=== PATIENT | female | born 1950 | race Caucasian/White ===

== ENCOUNTER 2020-08-12 08:07 | Outpatient (REF) | payer OTHER, SELFPAY ==
[2020-08-12 10:28] LABS: MANUAL DIFF FLAG NO
[2020-08-12 10:32] LABS: Basophils Percent Auto 0.2 % (0-2); Eosinophils Absolute Auto 0.2 X10*3/uL (0.0-0.4); Eosinophils Percent Auto 1.7 % (0-4); Hematocrit 35.5 % (37-47); Hemoglobin 11.1 g/dl (12.0-16.0); Imm Gran Abs Auto 0.02 X10*3/uL (0.00-0.03); Imm Gran Pct Auto 0.2 % (0.0-0.4); Lymphocytes Absolute Auto 1.6 X10*3/uL (1.2-4.9); Lymphocytes Percent Auto 16.7 % (20-40); Mean Corpuscular HGB Conc 31.3 g/dl (31.0-35.0); Mean Corpuscular Hemoglobin 29.1 pg (27.0-33.0); Mean Corpuscular Volume 93.2 fL (80-98); Mean Platelet Volume 10.5 fL (9.4-12.3); Monocytes Absolute Auto 0.7 X10*3/uL (0.1-1.2); Monocytes Percent Auto 7.2 % (2-11); Neutrophils Absolute Auto 7.1 X10*3/uL (2.0-8.3); Platelet Count 298 X10*3/uL (160-400); Red Blood Count 3.81 X10*6/uL (4.20-5.50); Red Cell Distribution Width 14.8 % (11.0-16.0); White Blood Count 9.6 X10*3/uL (4.8-10.8)
[2020-08-12 10:43] LABS: Estimated Average Glucose 189 mg/dL; Hemoglobin A1c % 8.2 %
[2020-08-12 11:21] LABS: Creatinine Urine 84.02 mg/dL; Microalbum/Creatinine Ratio Ur 54.7 ug/mg cr
[2020-08-12 11:25] LABS: Alanine Aminotransferase 11 U/L (0-31); Albumin Level 3.6 g/dL (3.5-5.0); Alkaline Phosphatase 98 U/L (39-117); Anion Gap 12 (12-20); Aspartate Amino Transferase 12 U/L (5-31); Bilirubin Total 0.4 mg/dL (0.0-1.0); Blood Urea Nitrogen 25 mg/dL (9-16); Calcium 9.8 mg/dL (8.4-10.2); Carbon Dioxide 29 mmol/L (22-29); Chloride 101 mmol/L (96-108); Cholesterol 172 mg/dL; Estimated Glomerular Filt Rate 43; Glucose Fasting 253 mg/dL (60-99); HDL Cholesterol 55 mg/dL; LDL Cholesterol Calculated 86 mg/dl; Potassium 4.3 mmol/l (3.3-5.1); Sodium 138 mmol/L (135-145); Total Protein 7.1 g/dL (6.5-8.0); Triglycerides 157 mg/dL
[2020-08-12 11:45] LABS: TSH reflex Free T4 1.95 mIU/mL (0.32-4.0)
== END 2020-08-12 08:08 | disposition home or self-care (01) ==
LOC: HO.WFDLDS 08:07
PROVIDERS: PCP Family Medicine; Visit Provider Family Medicine
DX: Z00.00 Encounter for general adult medical examination without abnormal findings (principal); F41.8 Other specified anxiety disorders; E11.9 Type 2 diabetes mellitus without complications
CPT/HCPCS: 36415; 80053; 80061; 82043; 83036; 84443; 85025

== ENCOUNTER → 2021-01-02 11:55 | Outpatient (BNVA) | payer OTHER, SELFPAY | PROVIDERS: PCP Family Medicine; Visit Provider Dietitian, Registered ==

== ENCOUNTER → 2021-02-10 13:15 | Outpatient (BNVA) | payer OTHER, SELFPAY | PROVIDERS: PCP Family Medicine; Visit Provider Physician Assistant | DX: R13.10 Dysphagia, unspecified (principal); I26.99 Other pulmonary embolism without acute cor pulmonale; T45.515A Adverse effect of anticoagulants, initial encounter; Z95.828 Presence of other vascular implants and grafts | CPT/HCPCS: Q3014 ==

== ENCOUNTER 2021-03-10 09:23 | Outpatient (REF) | payer OTHER, MEDICARE, SELFPAY ==
[2021-03-10 10:31] LABS: Basophils Percent Auto 0.5 % (0-2); Eosinophils Absolute Auto 0.1 X10*3/uL (0.0-0.4); Eosinophils Percent Auto 1.8 % (0-4); Hematocrit 39.6 % (37-47); Hemoglobin 12.3 g/dl (12.0-16.0); Imm Gran Abs Auto 0.02 X10*3/uL (0.00-0.03); Imm Gran Pct Auto 0.3 % (0.0-0.4); Lymphocytes Absolute Auto 1.6 X10*3/uL (1.2-4.9); Lymphocytes Percent Auto 20.7 % (20-40); MANUAL DIFF FLAG NO; Mean Corpuscular HGB Conc 31.1 g/dl (31.0-35.0); Mean Corpuscular Hemoglobin 29.6 pg (27.0-33.0); Mean Corpuscular Volume 95.4 fL (80-98); Monocytes Absolute Auto 0.5 X10*3/uL (0.1-1.2); Monocytes Percent Auto 6.3 % (2-11); Neutrophils Absolute Auto 5.5 X10*3/uL (2.0-8.3); Neutrophils Percent Auto 70.4 % (45-73); Platelet Count 290 X10*3/uL (160-400); Red Blood Count 4.15 X10*6/uL (4.20-5.50); Red Cell Distribution Width 13.6 % (11.0-16.0); White Blood Count 7.8 X10*3/uL (4.8-10.8)
[2021-03-10 10:37] LABS: Estimated Average Glucose 249 mg/dL; Hemoglobin A1c % 10.3 %
[2021-03-10 11:02] LABS: Alanine Aminotransferase 11 U/L (0-31); Albumin Level 3.8 g/dL (3.5-5.0); Alkaline Phosphatase 89 U/L (39-117); Anion Gap 12 (12-20); Aspartate Amino Transferase 13 U/L (5-31); Bilirubin Total 0.3 mg/dL (0.0-1.0); Blood Urea Nitrogen 37 mg/dL (9-16); Calcium 10.5 mg/dL (8.4-10.2); Carbon Dioxide 28 mmol/L (22-29); Chloride 103 mmol/L (96-108); Estimated Glomerular Filt Rate 39; Glucose Random 318 mg/dL (60-115); Potassium 5.1 mmol/L (3.3-5.1); Sodium 138 mmol/L (135-145); Total Protein 7.1 g/dL (6.5-8.0)
[2021-03-10 11:19] LABS: TSH reflex Free T4 4.46 uIU/mL (0.32-4.0)
== END 2021-03-10 09:24 | disposition home or self-care (01) ==
LOC: HO.WFDLDS 09:23
PROVIDERS: Visit Provider Family Medicine
DX: Z00.00 Encounter for general adult medical examination without abnormal findings (principal); E11.9 Type 2 diabetes mellitus without complications; R53.83 Other fatigue
CPT/HCPCS: 36415; 80053; 83036; 84439; 84443; 85025

== ENCOUNTER 2021-03-17 10:59 | Outpatient (REF) | payer OTHER, MEDICARE, SELFPAY ==
[2021-03-17 13:27] LABS: MANUAL DIFF FLAG NO
[2021-03-17 13:31] LABS: Basophils Percent Auto 0.4 % (0-2); Eosinophils Absolute Auto 0.1 X10*3/uL (0.0-0.4); Hematocrit 40.8 % (37-47); Hemoglobin 12.5 g/dl (12.0-16.0); Imm Gran Abs Auto 0.01 X10*3/uL (0.00-0.03); Imm Gran Pct Auto 0.1 % (0.0-0.4); Lymphocytes Absolute Auto 1.5 X10*3/uL (1.2-4.9); Lymphocytes Percent Auto 21.1 % (20-40); Mean Corpuscular HGB Conc 30.6 g/dl (31.0-35.0); Mean Corpuscular Hemoglobin 29.8 pg (27.0-33.0); Mean Corpuscular Volume 97.1 fL (80-98); Mean Platelet Volume 11.6 fL (9.4-12.3); Monocytes Absolute Auto 0.6 X10*3/uL (0.1-1.2); Monocytes Percent Auto 8.7 % (2-11); NRBC Pct Auto 0.6 /100WBC (0.0-0.2); Neutrophils Absolute Auto 4.7 X10*3/uL (2.0-8.3); Neutrophils Percent Auto 67.7 % (45-73); Platelet Count 295 X10*3/uL (160-400); Red Cell Distribution Width 14.2 % (11.0-16.0); White Blood Count 6.9 X10*3/uL (4.8-10.8)
[2021-03-17 13:43] LABS: Estimated Average Glucose 258 mg/dL; Hemoglobin A1c % 10.6 %
[2021-03-17 14:23] LABS: Alanine Aminotransferase 13 U/L (0-31); Albumin Level 3.9 g/dL (3.5-5.0); Alkaline Phosphatase 92 U/L (39-117); Anion Gap 16 (12-20); Aspartate Amino Transferase 16 U/L (5-31); Bilirubin Total 0.6 mg/dL (0.0-1.0); Blood Urea Nitrogen 38 mg/dL (9-16); Calcium 10.3 mg/dL (8.4-10.2); Carbon Dioxide 25 mmol/L (22-29); Chloride 103 mmol/L (96-108); Estimated Glomerular Filt Rate 33; Glucose Fasting 215 mg/dL (60-99); Potassium 5.1 mmol/L (3.3-5.1); Sodium 139 mmol/L (135-145); Total Protein 7.5 g/dL (6.5-8.0)
[2021-03-17 14:42] LABS: TSH reflex Free T4 3.26 uIU/mL (0.32-4.0)
== END 2021-03-17 11:00 | disposition home or self-care (01) ==
LOC: HO.WFDLDS 10:59
PROVIDERS: Visit Provider Family Medicine
DX: Z00.00 Encounter for general adult medical examination without abnormal findings (principal); D64.9 Anemia, unspecified; E11.9 Type 2 diabetes mellitus without complications; R79.89 Other specified abnormal findings of blood chemistry
CPT/HCPCS: 36415; 80053; 83036; 84443; 85025

== ENCOUNTER 2021-03-20 08:15 | Outpatient (REF) | payer OTHER, MEDICARE, SELFPAY ==
--- NOTE | ~2021-03-20 | FL_ITS ---
EXAMINATION: FL BARIUM SWALLOW CLINICAL INFORMATION: Dysphagia. COMPARISON: None TECHNIQUE: Barium swallow examination is performed using fluoroscopic evaluation in addition to multiple fluoroscopic spot views. The patient is imaged both upright and prone and using both thick and thin sulfate along with effervescent granules. Fluoroscopy time: 1.5 minutes DAP: 19.39 Gycm2 Images: 62 FINDINGS: Following oral administration of thick barium and barium-coated turkey there is normal propagation of bolus from the oral cavity through the pharynx, esophagus into stomach without any evidence of obstruction, narrowing or stricture. No laryngeal penetration or aspiration seen. On placing patient supine and prone and oral administration of thin barium there is good distention of esophagus. Incidental note is a small sliding hiatal hernia with moderate gastroesophageal reflux. FL/FL barium swallow IMPRESSION: Small hiatal hernia with moderate gastroesophageal reflux. No esophageal obstruction or narrowing seen.
== END 2021-03-20 08:16 | disposition home or self-care (01) ==
LOC: HO.XRAY 08:15
PROVIDERS: PCP Family Medicine; Visit Provider Physician Assistant
DX: R13.10 Dysphagia, unspecified (principal); I26.99 Other pulmonary embolism without acute cor pulmonale; T45.515A Adverse effect of anticoagulants, initial encounter
CPT/HCPCS: 74220

== ENCOUNTER → 2021-03-25 10:21 | Outpatient (BNVA) | payer OTHER, SELFPAY | PROVIDERS: PCP Family Medicine; Visit Provider Dietitian, Registered | DX: E11.9 Type 2 diabetes mellitus without complications (principal) | CPT/HCPCS: 97803 ==

== ENCOUNTER → 2021-04-22 13:10 | Outpatient (BNVA) | payer OTHER, SELFPAY | PROVIDERS: PCP Family Medicine; Visit Provider Physician Assistant | DX: Z13.89 Encounter for screening for other disorder (principal) | CPT/HCPCS: Q3014 ==

== ENCOUNTER → 2021-07-02 11:37 | Outpatient (BNVA) | payer OTHER, SELFPAY | PROVIDERS: PCP Family Medicine; Visit Provider Physician Assistant | CPT/HCPCS: Q3014 ==

== ENCOUNTER → 2022-01-11 10:48 | Outpatient (BNVA) | payer OTHER, SELFPAY | PROVIDERS: PCP Family Medicine; Visit Provider Dietitian, Registered | DX: E11.9 Type 2 diabetes mellitus without complications (principal) | CPT/HCPCS: 97803 ==

== ENCOUNTER 2025-03-07 12:59 | Outpatient (AMB) | payer OTHER, SELFPAY ==
--- NOTE | 2025-03-07 13:31 | HO.NEPHOV_ITS ---
Vital Signs 03/07/25 13:40 Height 5 ft Weight 329 lb BMI 64.2 BP 130/60 Blood Pressure Location Rt brachial Position Sitting Pulse 55 Pulse Source Pulse Oximeter Pulse Oximetry (%) 95 Oxygen Delivery Method Room Air Intake Visit Reasons: DX-CKD Allergies alosetron [Lotronex] Allergy (Unknown, Verified 07/02/21 11:38) itching clindamycin [CLINDAMYCIN] Allergy (Unknown, Verified 07/02/21 11:38) RASH Clindamycin HCl Allergy (Unknown, Uncoded 07/02/21 11:38) rash HPI Comments Details: I had the pleasure of seeing Catrina in consultation for chronic kidney disease. She is 74 years of age with diabetes and hypertension for a long time. She has high BMI. She has severe obstructive sleep apnea as well. Her hemoglobin A1c had been uncontrolled. It was close to 10 last year but has improved since. She claims to be compliant with her medications. She is on JONNATHAN-inhibitor. She is not taking any SGLT2 inhibitor. She has history of cervical cancer and had undergone radiotherapy in 2001. She denies diabetic retinopathy but has neuropathy. She denies epistaxis, photosensitivity, new skin rashes, hematemesis, melena, hematuria, flank pain, renal stones, new bone or back pain, excessive amount of nonsteroidal anti-inflammatory intake, orthostatic symptoms, coronary artery disease, congestive heart failure, CVA, carotid stenosis or peripheral arterial disease. She did not have any new specific systemic complaints at the time of this office visit. [facility] Medical History (Updated 03/11/25 @ 13:56 by Ketan Simpson MD) Macular degeneration History of pulmonary embolus (PE) Depression Hypertension Hyperlipidemia Hyperparathyroidism Hyperglycemia Chronic kidney disease, stage 3 Pulmonary embolus Peroneal DVT (deep venous thrombosis) Diabetes type 2, controlled Surgical History Hx of endoscopy Hx of colonoscopy Hx of appendectomy Hx of carpal tunnel repair History of hysterectomy S/P skin biopsy Family History Father No problems noted. Mother No problems noted. Brother No problems noted. Social History (Updated 03/07/25 @ 13:33 by Munira Wiley MA) Are you a primary direct care counselor to a significant other at home: No Alcohol intake: former Patient Tobacco Use Status: Never used Tobacco Advance Directives Date on File: 08/12/20 Review of Systems Const All systems reviewed & are unremarkable except as noted in HPI and below Physical Exam Vital Signs: Last Vital Signs Pulse 55 03/07/25 13:40 BP 130/60 03/07/25 13:40 Pulse Ox 95 03/07/25 13:40 Oxygen Delivery Method Room Air 03/07/25 13:40 BMI result Body Mass Index 64.2 Const General: comfortable and no acute distress Orientation/consciousness: patient oriented x3 HEENT Head: Yes normocephalic Mouth: Normal oral and palatal mucosa present Eyes EOM: EOMs intact bilaterally Neck Neck: Yes supple Resp Auscultation: clear to auscultation bilaterally Cardio Jugular venous distension: no JVD Rate: regular rate GI Palpation (GI): Soft to palpation Auscultation: normal bowel sounds General: Yes no CVA tenderness Back/Spine/Pelvis Back: no CVA tenderness Skin General skin exam: no rashes or lesions noted Neuro General: patient oriented x3 and moves all extremities Extrem General: Yes no pedal edema Results Reviewed Nephrology Results: No Data to Display Assessment & Plan Assessment & Plan (1) CKD stage 3 due to type 2 diabetes mellitus: Code(s): E11.22 - Type 2 diabetes mellitus with diabetic chronic kidney disease; N18.30 - Chronic kidney disease, stage 3 unspecified Category: Medical (2) Hypertension: Code(s): I10 - Essential (primary) hypertension Category: Medical Qualifiers: Hypertension type: primary hypertension Qualified Code(s): I10 - Essential (primary) hypertension Plan 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 Her renal functions are pretty stable. She does not have any significant proteinuria. Her blood pressure is at goal. Her hemoglobin A1c is improving. She needs to lose weight. She should avoid nonsteroidal anti-inflammatories and maintain good hydration. She is tolerating JONNATHAN inhibitor well. I intend to maximize the dose of JONNATHAN inhibitor provided her has renal functions, hemodynamics and serum potassium permits. She should go on SGLT2 inhibitor. I ordered follow-up blood work. She is not taking any omeprazole now. I did not make any medication changes today. Answered all questions. Follow-up appointment given Orders: Orders Immunofixation Pnl, Serum 3 Months E11.22 - Type 2 diabetes mellitus with diabetic chronic kidney disease, I10 - Essential (primary) hypertension, N18.30 - Chronic kidney disease, stage 3 unspecified Creatinine 3 Months E11.22 - Type 2 diabetes mellitus with diabetic chronic kidney disease, I10 - Essential (primary) hypertension, N18.30 - Chronic kidney disease, stage 3 unspecified Protein Creatinine Ratio, Ur 3 Months E11.22 - Type 2 diabetes mellitus with diabetic chronic kidney disease, I10 - Essential (primary) hypertension, N18.30 - Chronic kidney disease, stage 3 unspecified Immunofixation, Random Urine 3 Months E11.22 - Type 2 diabetes mellitus with diabetic chronic kidney disease, I10 - Essential (primary) hypertension, N18.30 - Chronic kidney disease, stage 3 unspecified Blood Urea Nitrogen 3 Months E11.22 - Type 2 diabetes mellitus with diabetic chronic kidney disease, I10 - Essential (primary) hypertension, N18.30 - Chronic kidney disease, stage 3 unspecified Electrolytes 3 Months E11.22 - Type 2 diabetes mellitus with diabetic chronic kidney disease, I10 - Essential (primary) hypertension, N18.30 - Chronic kidney disease, stage 3 unspecified Calcium 3 Months E11.22 - Type 2 diabetes mellitus with diabetic chronic kidney disease, I10 - Essential (primary) hypertension, N18.30 - Chronic kidney disease, stage 3 unspecified Medications: Discontinued omeprazole Discontinued Reason: Doctor's Order 20 mg PO DAILY 30 caps 4RF Coding Level of Care Code New Pt Level 4 (76609) Diagnoses CKD stage 3 due to type 2 diabetes mellitus E11.22; N18.30 Primary hypertension I10 Hypertension type: primary hypertension
[2025-03-07 13:40] VITALS: BP 130/60; PULSE 55; O2SAT 95; BMI 64.2
--- OUTSIDE RECORDS SUMMARY | 2025-03-07 15:27 | XMS_ITS ---
Author Organization [facility] Address [address] [place] [address] Care Team Providers Care Rn Compliance Name Role Phone Dr Julieta Griffin Primary Care Provider Christine vailable Pravin Holbrook Unavailable [phone] Encounters Encounter Location Date Provider Diagnosis [facility] [address] [place] [address] 01/15/2025 Pravni Holbrook Plan Of Treatment No Information Progress Notes * Catrina TERESA ADOB: (74 yo F)Acc No.[id number]:01/15/2025 Progress Note Patient:Lorelei MARIONa Melanie Provider:?Pravin Holbrook DPM :1950???Age:74 Y???Sex:Female D ate:01/15/2025 Address:[address] [place] [address] [address], [place], [phone] Pcp:Dr Julieta Griffin Subjective: * Chief Complaints: * ??? * Medical History:? Objective: * Vitals:? Assessment: Plan: * Treatment: * Images: * The named appointment provid er may or may not be the originator of this progress note, and it is not deemed complete until electronically signed by the appointment provider. Sign off status: Pending * Provider:?Pravin Holbrook DPM Date:?2024 Generated for Julius tipton/Ministerio/Nadeemitting on:?03/07/2025 03:27 PM EDT
--- OUTSIDE RECORDS SUMMARY | 2025-03-07 15:27 | XMS_ITS | Data Portability ---
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 Patient seen by Keri 6 days ago last week. Symptoms have primarily been cough productive of sputum and nasal congestion. No fever, no SOB. Had loose stool but that has stopped. No other new or other symptoms. She was prescribed azithromycin and took it all, but nothing has changed. Padmini Hyperpotparadise did not work for her cough. She hasn't tried anything over the counter. Evaluation in the field was performed by my research advisor colleague, as noted above, I provided real-time direction and supervision for this visit. PE: General: Awake & alert, NAD Respiratory: CTAB. Chest rise equal bilat, no increased wob CV: Regular rate, normal peripheral perfusion Impression: Upper respiratory infection Plan: -pt appears well, is in no resp distress, VSS, lungs clear -completed 5 days azithromycin -will continue to treat symptoms with cetirizine and fluticasone for 14 days each. Have also prescribed guaifenesin as an expectorant. -advised to try Netti Pot to help with sinus congestion -should follow up with PCP Disposition: Remain at home We discussed the diagnostic uncertainty of home visits and the risk associated with this. In this case, the patient and I felt this to be an acceptable and reasonable amount of risk given the benefit of avoiding an ED visit. We discussed the need to seek care urgently/emerge ntly in the setting of any new or worsening serious symptoms, particularly shortness of breath. Not available 08/07/2024 13:31:16 08/25/2024 08/25/2024 Evaluation in the field was performed by my research advisor colleague, as noted above, I provided real-time direction and supervision for this visit. This is a 74yo F complaining of right lower leg redness and a wound. She first noticed this area was red on Tuesday, 3 days ago, and the following day a small open wound developed. Area is locally painful, but there is no pain elsewhere in the leg nor any swelling. No fever. No fall or injury to the site. Does have cats at home but denies cat scratch to this area. Hx DVT/PE on coumadin. PE: General: Awake & alert, NAD Respiratory: Chest rise equal bilat, no increased wob CV: Regular rate, normal peripheral perfusion Skin: There is a small circular ulceration on the lateral right lower leg with surrounding erythema and mild tenderness to palpation. No edema of the leg. No drainage noted. Impression: Cellulitis of right lower leg Plan: -pt appears well, VSS -developing cellulitis is present at site of small skin ulceration. Will treat with cefuroxime 500mg BID for 5 days. -no active drainage - no need for local wound care at this time, but can keep a dressing over it if desired. -no concern for associated DVT given exam Disposition: Remain at home We discussed the diagnostic uncertainty of home visits and the risk associated with this. In this case, the patient and I felt this to be an acceptable and reasonable amount of risk given the benefit of avoiding an ED visit. We discussed the need to seek care urgently/emerge ntly in the setting of any new or worsening serious symptoms, particularly increased swelling, SOB, high fever, or if the wound is increasing in size/pain after 48hrs of antibiotic treatment. Not available 08/25/2024 10:58:35 12/20/2024 12/20/2024 service called for cough body ache found 74 maryjane with hx T2DM obesity HTN CKD PE recently diagnosed +COVID and treated with paxlovid c/o return of body ache, cough following completion of paxlovid denies fever, chills VS af 163/67 63 reported CTAB #COVID rebound stable at this time supportive care monitor for fever, change in sputum and notify service otherwise return to primary care [email or web address] Not available 12/20/2024 23:29:09 01/28/2025 01/28/2025 Evaluation in the field was performed by my research advisor colleague, as noted above, I provided real-time direction and supervision for this visit. This is a 74yo F with stage 3 CKD who had routine labs drawn today and was told her potassium level is high. [facility] requested for further evaluation. Patient has no complaints. Denies recent med changes or illness. PE: General: Awake & alert, NAD Respiratory: Chest rise equal bilat, no increased wob CV: Regular rate, normal peripheral perfusion Neuro: A&Ox4. No focal deficits. Impression: Hyperkalemia Plan: -VSS but slightly hypertensive. Has hx of HTN. -Previous K level today was 5.7 and Cr 1.21. -Medic unable to obtain blood to recheck potassium level. Patient admits she is a very hard stick, states multiple attempts were made at the lab earlier which I believe makes it more likely the level 5.7 may have been hemolyzed. -I am not emergently concerned about a level of 5.7 with or without hemolysis. Patient's Cr is 1.2, and she has no symptoms of any kind currently. -I think pt can contact her PCP tomorrow to see if they want her to go back into the lab for phlebotomy to reattempt lab draw. No ED referral needed. Disposition: Remain at home Not available 01/28/2025 21:03:50 Plan of Treatment Reminders Order Date Submit Date Provider Last Modified By Organization Details Last Modified Time Details Appointments None recorded. Lab rapid SARS CoV 2 Ag, QL IA, respiratory specimen 2024 025 [facility], [address] [place] [address], [id number] 5 17:05:01 rapid flu (A+B) 2024 025 [facility], [address] [place] [address], [id number] 17:05:01 Referral None recorded. Procedures None recorded. Surgeries None recorded. Imaging None recorded. Medication Orders erythromyci n 5 mg/gram (0.5 %) eye ointment 2024 025 [id number], [address] [place], [id number], 5 11:24:17 Paxlovid 150 mg-100 mg tablets in a dose pack (Moderate Renal Dose) 2024 025 [id number], [address], [place], [id number], 5 11:24:16 cefuroxime axetil 500 mg tablet 2023 024 [id number], [address], [place], [id number], 4 10:50:32 fluticasone propionate 50 mcg/actuati on nasal spray,suspe nsion 2023 [id number], [address], [place], [id number], 4 13:17:49 guaifenesin 400 mg tablet 2023 024 [facility][id number], [address], [place], [id number], 4 13:17:48 cetirizine 10 mg tablet 2023 024 [id number], [address], [place], [id number], 4 13:17:48 Patient TargetsNo targets recorded. Patient InstructionsNo instructions recorded. Reason for Referral None Reported. Results Created Date Observation Date Name Description Value Unit Range Abnormal Flag Note LastModifiedBy Organization Detail LastModifiedTime 08/02/20 24 08/02/2024 gluco se, finge rstic k, blood Blood Glucose: mg/dl 389 [facility] Available [facility] [address] [place] [address], [id number] 08/02/2024 14:03:58 08/02/20 24 08/02/2024 urina lysis , dipst ick Leukocytes 1+ Not Available Main - [facility] [address] [place] [address], [id number] 08/02/2024 13:58:07 08/02/20 24 08/02/2024 urina lysis , dipst ick Nitrite negati ve Not Available Main - [facility] [address] [place] [address], [id number] 08/02/2024 13:58:07 08/02/20 24 08/02/2024 urina lysis , dipst ick Urobilinogen Negati ve Not Available Main - [facility] [address] [place] [address], [id number] 08/02/2024 13:58:07 08/02/20 24 08/02/2024 urina lysis , dipst ick Protein 1+ Not Available Main - [facility] [address], [address] 08/02/2024 13:58:07 08/02/20 24 08/02/2024 urina lysis , dipst ick pH 5 Not Available Main - [facility] [address], [phone] 08/02/2024 13:58:07 08/02/20 24 08/02/2024 urina lysis , dipst ick Blood Negati ve Not Available Main - [facility] [address] [place] [address], [id number] 08/02/2024 13:58:07 08/02/20 24 08/02/2024 urina lysis , dipst ick Specific [place] 1.015 Not Available Main - [facility] [address] [place] [address], [id number] 08/02/2024 13:58:07 08/02/20 24 08/02/2024 urina lysis , dipst ick Ketone Trace? Not Available Main - [facility] [address], [phone] 08/02/2024 13:58:07 08/02/20 24 08/02/2024 urina lysis , dipst ick Bilirubin Negati ve Not Available Main - [facility] [address] [place] [address], [id number] 08/02/2024 13:58:07 08/02/20 24 08/02/2024 urina lysis , dipst ick Glucose 2+ Not Available Main - [facility] [address], [id number] 08/02/2024 13:58:07 08/02/20 24 08/02/2024 urina lysis , dipst ick Appearance Clear Not Available [facility] [address] [place] [address], [address] [place] [address] 08/02/2024 13:58:07 08/02/20 24 08/02/2024 urina lysis , dipst ick Color Dark yellow Not Available [facility] [address] [place] [address], [address] [place] [address] 08/02/2024 13:58:07 08/02/20 24 08/02/2024 BMP, serum or plasm a BUN 23 Not Available Main - [facility] [address], [address] [place] [address] 08/02/2024 13:58:01 08/02/20 24 08/02/2024 BMP, serum or plasm a CRE 1 Not Available Main - [facility] [address], [address] [place] [address] 08/02/2024 13:58:01 08/02/20 24 08/02/2024 BMP, serum or plasm a GLU 332 Not Available Main - [facility] [address], [address] [place] [address] 08/02/2024 13:58:01 08/02/20 24 08/02/2024 rapid strep group A, throa t Strep negati ve Not Available [facility] [address] [place] [address], [address] [place] [address] 08/02/2024 13:57:57 08/02/20 24 08/02/2024 rapid flu (A+B) Flu negati ve Not Available [facility] [address] [place] [address], [address] [place] [address] 08/02/2024 13:57:55 08/02/20 24 08/02/2024 rapid SARS CoV 2 Ag, QL IA, respi rator y speci men rapid SARS CoV 2 Ag, QL IA, respiratory specimen negati ve Not Available [facility] ed [address] [place] [address], [address] [place] [address] 08/02/2024 13:57:54 Result Notes None recorded. Problems Name Problem SNOMED Code Status Onset Date Resolution Date Notes Provider Name and Address Organization Details Recorded Time Acute right otitis media 338358170 Active 022 Marimar Johnson MD [address] [place] [address],[address], [place], [address] , [employer] 2 16:50:04 Acute COVID-19 3227626559 Active 024 Elina Thorpe MD [address] [facility],[address], [place], [address] , [employer] 4 13:33:58 Problem Notes None recorded. Medical Equipment None Reported. Allergies Allergen ID Allergen Name Allergen Category Reaction Reaction Severity Criticality Documentation Date Start Date Code Code System Note Provider Name and Address Organization Details Recorded Time 23 Product containin g penicilli n (product) medicatio n Not available Not available Not available 12/30/2021 63099 8001 SNOMED Not Available [facility] - production 4 03:44:02 24 clindamyc in Not available Not available Not available Not available 12/30/2021 2582 RxNorm Not Available [facility] - production 4 03:44:02 25 Lovenox medicatio n Not available Not available Not available 12/30/2021 93507 6 RxNorm Not Available [facility] - production 5 11:12:46 Medications Name Sig Start Date Stop Date Status Note LastModified by Organization Details LastModified Time fluconazole 100 mg tablet TAKE 1 TABLET BY MOUTH DAILY FOR 3 DAYS active Not Available Not Available N ot Available atorvastatin 40 mg tablet active Not Available Not Available Not Available atorvastatin 80 mg tablet active Not Available Not Available Not Available nystatin 100,000 unit/mL oral suspension SHAKE LIQUID AND TAKE 4 ML BY MOUTH FOUR TIMES DAILY FOR 10 DAYS active Not Available Not Available No t Available acetaminophe n 325 mg tablet active Not Available Not Available Not Available gabapentin 600 mg tablet active Not Available Not Available Not Available doxycycline hyclate 100 mg capsule TAKE 1 CAPSULE BY MOUTH TWICE DAILY FOR 7 DAYS active Not Available Not Available No t Available tizanidine 2 mg tablet active Not Available Not Available No t Available cetirizine 10 mg tablet TAKE 1 TABLET BY MOUTH EVERY DAY FOR 14 DAYS active Not Available Not Available No t Available azithromycin 250 mg tablet TAKE 1 TABLET BY MOUTH ONCE DAILY WITH FOOD FOR 4 DAYS active Not Available Not Available No t Available fluconazole 150 mg tablet TAKE 1 TABLET BY MOUTH ONCE A WEEK FOR 4 WEEKS ALSO APPLY NYSTATIN POWDER TWICE DAILY AFTER CLEANING AND DRYING AREA active Not Available Not Available No t Available senna 8.6 mg tablet active Not Available Not Available Not Available fluconazole 200 mg tablet TAKE 1 TABLET BY MOUTH DAILY FOR 7 DAYS active Not Available Not Available N ot Available FreeStyle Lancets 28 gauge active Not Available Not Available Not Available sumatriptan 25 mg tablet TAKE 1 TABLET BY MOUTH DAILY. MAY REPEAT AT LEAST 2 HOURS. NO MORE THAN 2 DOSES / DAILY NEEDED BY MOUTH 2 TIMES A DAY 7 DAYS active Not Available Not Available No t Available lisinopril 20 mg tablet TAKE 1 TABLET BY MOUTH EVERY DAY active Not Available Not Available No t Available alendronate 70 mg tablet TAKE 1 TABLET BY MOUTH 1 TIME A WEEK 30 MINUTES BEFORE FIRST FOOD OR BEVERAGE OR MEDICINE OF THE DAY WITH WATER active Not Available Not Available N ot Available lactated Ringers intravenous solution 500 ML IV x1 2022 active Not Available Not Available Not Avai lable sulfamethoxa zole 800 mg-trimethop rim 160 mg tablet TAKE 1 TABLET BY MOUTH EVERY 24 HOURS FOR 5 DAYS active Not Available Not Available N ot Available peg-electrol yte solution 420 gram oral solution MIX AND DRINK DIRECTED active Not Available Not Available No t Available doxycycline monohydrate 100 mg tablet TAKE 1 TABLET BY MOUTH TWO TIMES A DAY FOR 7 DAYS active Not Available Not Available N ot Available tramadol 50 mg tablet TAKE 1 TABLET BY MOUTH EVERY 8 HOURS NEEDED FOR SEVERE PAIN active Not Available Not Available Not Available acetaminophe n 500 mg tablet Take 2 tablets every 8 hours by oral route for 30 days. 2021 active Not Available Not Available Not Avai lable carvedilol 3.125 mg tablet TAKE 1 TABLET BY MOUTH TWICE A DAY WITH MEALS active Not Available Not Available No t Available acetaminophe n ER 650 mg tablet,exten ded release active Not Available Not Available Not Available cefadroxil 500 mg capsule Take 2 capsules every day by oral route for 5 days. active Not Available Not Available No t Available meclizine 25 mg tablet active Not Available Not Available No t Available benzonatate 100 mg capsule TAKE 1 CAPSULE BY MOUTH THREE TIMES DAILY NEEDED FOR COUGH active Not Available Not Available No t Available hydrocortiso ne 1 % topical cream active Not Available Not Available Not Available bisacodyl 10 mg rectal suppository UNWRAP AND INSERT 1 SUPPOSITORY RECTALLY EVERY DAY NEEDED FOR CONSTIPATIO N active Not Available Not Available No t Available cephalexin 500 mg capsule TAKE 1 CAPSULE BY MOUTH EVERY 12 HOURS FOR 7 DAYS active Not Available Not Available N ot Available erythromycin 5 mg/gram (0.5 %) eye ointment APPLY 1 CM RIBBON INTO THE LOWER CONJUNTIVAL SAC IN THE AFFECTED EYE THREE TIMES DAILY active Not Available Not Available Not Available nystatin 100,000 unit/gram topical cream APPLYTOPICA LLY THREE TIMES DAILY OVER THE ABDOMINAL FOLDS AND GROIN X 2 WEEKS active Not Available Not Available No t Available clotrimazole -betamethaso ne 1 %-0.05 % topical cream active Not Available Not Available Not Available lisinopril 10 mg tablet active Not Available Not Available Not Available warfarin 5 mg tablet active Not Available Not Available No t Available nitroglyceri n 0.[address] 1 TABLET UNDER THE TONGUE EVERY 5 MINUTES NEEDED FOR CHEST PAIN. active Not Available Not Available Not Available hydrocortiso ne-aloe vera 1 % topical cream active Not Available Not Available Not Available docusate sodium 100 mg capsule active Not Available Not Available N ot Available omeprazole 20 mg capsule,migel yed release active Not Available Not Available Not Available aspirin 81 mg chewable tablet active Not Available Not Available Not Available furosemide 20 mg tablet active Not Available Not Available Not Available nystatin 100,000 unit/gram topical powder USE 1 APPLICATION TO THE AFFECTED AREA TWICE DAILY X 7 DAYS active Not Available Not Available No t Available warfarin 1 mg tablet TAKE 1 TABLET BY MOUTH DAILY DIRECTED BASED ON INR active Not Available Not Available No t Available cefuroxime axetil 500 mg tablet TAKE 1 TABLET BY MOUTH EVERY 12 HOURS FOR 5 DAYS active Not Available Not Available N ot Available polyethylene glycol 3350 17 gram/dose oral powder DISSOLVE 17GM IN WATER TWICE DAILY AND DRINK BY MOUTH active Not Available Not Available No t Available ondansetron 4 mg disintegrati ng tablet DISSOLVE 1 TABLET ON THE TONGUE EVERY 8 HOURS FOR 3 DAYS NEEDED FOR NAUSEA OR VOMITING active Not Available Not Available No t Available fluticasone propionate 50 mcg/actuatio n nasal spray,suspen natalya SHAKE LIQUID AND USE 1 SPRAY IN EACH NOSTRIL EVERY DAY FOR 14 DAYS active Not Available Not Available Not Available metformin ER 500 mg tablet,exten ded release 24 hr TAKE 1 TABLET BY MOUTH TWICE DAILY active Not Available Not Available No t Available clotrimazole 1 % topical cream active Not Available Not Available Not Available doxycycline hyclate 100 mg tablet TAKE 1 TABLET BY MOUTH TWICE DAILY FOR 5 DAYS active Not Available Not Available No t Available Hibiclens 4 % topical liquid active Not Available Not Available Not Available amoxicillin 875 mg-potassium clavulanate 125 mg tablet TAKE 1 TABLET BY MOUTH EVERY 12 HOURS FOR 5 DAYS active Not Available Not Available N ot Available magnesium 250 mg (as magnesium oxide) tablet active Not Available Not Available Not Available oxycodone 5 mg tablet TAKE 1/2 TABLET BY MOUTH EVERY 6 HOURS NEEDED FOR PAIN active Not Available Not Available No t Available Novolog FlexPen U-100 Insulin aspart 100 unit/mL (3 mL) subcutaneous active Not Available Not Available Not Available ciprofloxaci n 0.3 %-dexamethas one 0.1 % ear drops,suspen natalya SHAKE LIQUID AND INSTILL 4 DROPS TO AFFECTED EAR TWICE DAILY FOR 7 DAYS active Not Available Not Available No t Available Alcohol Prep Pads active Not Available Not Available Not Available Dr. Carbajal's Diaper 10 % topical ointment active Not Available Not Available Not Available duloxetine 60 mg capsule,migel yed release active Not Available Not Available Not Available lactulose 10 gram/15 mL oral solution TAKE 30 ML BY MOUTH DAILY NEEDED FOR CONSTIPATIO N active Not Available Not Available No t Available Chest Congestion Relief 400 mg tablet TAKE 1 TABLET BY MOUTH THREE TIMES DAILY NEEDED FOR 7 DAYS active Not Available Not Available N ot Available zinc sulfate 50 mg zinc (220 mg) capsule active Not Available Not Available Not Available Januvia 50 mg tablet active Not Available Not Available No t Available ferrous gluconate 324 mg (38 mg iron) tablet active Not Available Not Available Not Available Lantus Solostar U-100 Insulin 100 unit/mL (3 mL) subcutaneous pen active Not Available Not Available Not Available diclofenac 1 % topical gel active Not Available Not Available Not Available cholecalcife rol (vitamin D3) 50 mcg (2,000 unit) capsule active Not Available Not Available Not Available cholecalcife rol (vitamin D3) 125 mcg (5,000 unit) tablet active Not Available Not Available Not Available GaviLyte-G 236 gram-22.74 gram-6.74 gram-5.86 gram oral solution active Not Available Not Available Not Available Super Probiotic 20 billion cell capsule TAKE 1 CAPSULE BY MOUTH EVERY 8 HOURS X 20 DAYS active Not Available Not Available No t Available Metamucil Fiber Singles 3.4 gram oral powder packet MIX 1 PACKET WITH 8 OUNCES OF LIQUID DIRECTED AND DRINK ONCE DAILY NEEDED active Not Available Not Available No t Available Tradjenta 5 mg tablet active Not Available Not Available No t Available OneTouch Verio test strips USE TO TEST FOUR TIMES DAILY active Not Available Not Available No t Available Unifine Pentips 31 gauge x 3/16 needle active Not Available Not Available Not Available Unifine Pentips 32 gauge x 5/32 needle active Not Available Not Available Not Available Probiotic 20 billion cell capsule Take 1 capsule every 8 hours by oral route for 20 days. 2022 active Not Available Not Available Not Avai lable PreserVision AREDS-2 250 mg-90 mg-40 mg-1 mg capsule active Not Available Not Available Not Available OneTouch Verio Flex Meter USE TO TEST active Not Available Not Available Not Available vancomycin 1 gram/200 mL in 0.9 % sod. chloride intravenous piggyback 1 gram IV piggyback x1 now 2022 active Not Available Not Available Not Avai lable Trulance 3 mg tablet TAKE 1 TABLET BY MOUTH DAILY active Not Available Not Available Not Available Ozempic 0.25 mg or 0.5 mg (2 mg/1.5 mL) subcutaneous pen injector active Not Available Not Available Not Available OneTouch Delica Plus Lancet 30 gauge USE TO TEST FOUR TIMES DAILY active Not Available Not Available No t Available Daily Probiotic (S. boulardii) 250 mg capsule TAKE 1 CAPSULE BY MOUTH TWICE DAILY FOR 5 DAYS active Not Available Not Available No t Available Baqsimi 3 mg/actuation nasal spray active Not Available Not Available Not Available FreeStyle [place] 2 Sensor kit active Not Available Not Available N ot Available FreeStyle [place] 2 [place] USE TO CHECK BLOOD SUGAR FOUR TIMES DAILY DIRECTED active Not Available Not Available Not Available Tab-A-Jacek 400 mcg tablet active Not Available Not Available Not Available Ozempic 1 mg/dose (4 mg/3 mL) subcutaneous pen injector active Not Available Not Available Not Available BinaxNOW COVID-19 Ag Self Test kit TEST DIRECTED TODAY active Not Available Not Available No t Available Ozempic 2 mg/dose (8 mg/3 mL) subcutaneous pen injector active Not Available Not Available Not Available Paxlovid 150 mg-100 mg tablets in a dose pack (Moderate Renal Dose) TAKE 1 NIRMATRELVI R AND 1 RITONAVIR TABLET BY MOUTH TWICE A DAY FOR 5 DAYS active Not Available Not Available No t Available Ozempic 0.25 mg or 0.5 mg (2 mg/3 mL) subcutaneous pen injector active Not Available Not Available Not Available Vitals Date Recorded Respiratory rate Body height Oxygen saturation Oxygen saturation in Arterial blood by Pulse oximetry Heart rate Body weight Body temperature Systolic blood pressure Diastolic blood pressure Provider Name and Address Organization Details Last Updated DateTime 4 16 /min 152.4 cm 96 % 96 % 81 /min 92324.0 8 g 97.1 [degF] 151 mm[Hg] 79 mm[Hg] Not Available [employer] 4 13:10:26 Date Recorded Body weight Respiratory rate Body temperature Body height Oxygen saturation Oxygen saturation in Arterial blood by Pulse oximetry Heart rate Systolic blood pressure Diastolic blood pressure Provider Name and Address Organization Details Last Updated DateTime 4 412630. 52 g 16 /min 98.5 [degF] 152.4 cm 97 % 97 % 64 /min 140 mm[Hg] 88 mm[Hg] Not Available [employer] 4 11:15:01 Date Recorded Respiratory rate Heart rate Body temperature Body height Oxygen saturation Oxygen saturation in Arterial blood by Pulse oximetry Body weight Systolic blood pressure Diastolic blood pressure Provider Name and Address Organization Details Last Updated DateTime 5 20 /min 79 /min 99.5 [degF] 152.4 cm 95 % 95 % 068459. 44 g 161 mm[Hg] 85 mm[Hg] Not Available [employer] 5 10:42:08 Date Recorded Body temperature Heart rate Respiratory rate Oxygen saturation Oxygen saturation in Arterial blood by Pulse oximetry Systolic blood pressure Diastolic blood pressure Provider Name and Address Organization Details Last Updated DateTime 5 98.2 [degF] 63 /min 16 /min 97 % 97 % 163 mm[Hg] 67 mm[Hg] Not Available [employer] 5 19:48:25 Date Recorded Oxygen saturation Oxygen saturation in Arterial blood by Pulse oximetry Body weight Respiratory rate Body height Body temperature Heart rate Systolic blood pressure Diastolic blood pressure Provider Name and Address Organization Details Last Updated DateTime 5 96 % 96 % 106286. 44 g 16 /min 152.4 cm 98.6 [degF] 64 /min 160 mm[Hg] 90 mm[Hg] Not Available [facility] - production 20:11:06 Social History None recorded. Functional Status None recorded. Mental Status None recorded. Family History Nothing Reported. Medical History No medical history recorded. Gynecological HistoryNo gynecological history recorded. Obstetrics History GPAL:G 0 P 0 0 0 0 Past Encounters Encounter ID Performer Location Encounter Start Date Encounter Closed Date Diagnosis/Indication Diagnosis SNOMED-CT Code Diagnosis ICD10 Code Diagnosis Note [id number] Marimar Johnson MD Main - [facility] [address] [place] [address] [id number] 12/30/2021 15:48:01 06/23/2022 11:00:07 Acute right otitis media 950727106 H66.91 Incorrecte diagnosis, LEFT otitis media Acute left otitis media 889657598 H66.92 2 weeks of LEFT ear pain, no prior hx otitis media. Given partial improvemen t w/ cephalexin c/f partially treated AOM vs resistant org. Will opt to treat with doxycyclin e x10 days to avoid possible abx allergy. If sx fail to improve recommend in person PCP eval to r/o mass/ara toño or other ENT abnormalit y placing her at risk for new onsent recurrent AOM. Indication s to present to ED discussed. [id number] [facility] [address] [place] [address] [phone] 0 03/08/2022 21:24:15 07/09/2022 15:04:06 Generalized headache 721376388 R51.9 [id number] Greg Tripathi MD Main - [facility] [address] [place] [address] [id number] 0 04/23/2022 16:59:46 07/13/2022 12:13:35 Exposure to SARS-CoV-2 216339602 Z20.822 [id number] [facility]ie [facility]ins [facility] [address] [place] [address] [phone] 0 10/20/2022 17:59:24 10/22/2022 10:57:55 Headache 80369357 R51.9 [id number] Marimar Johnson MD Main - [facility] [address] [place] [address] [id number] 0 02/25/2023 15:33:03 02/28/2023 11:46:04 Chest pain 29380881 R07.9 Evaluation in the field was performed by my research advisor colleague, as noted above, I provided real-time direction and supervisio n for this visit. 61yo F p/w weeks of exertional dyspnea and 1 day of L sided exertional chest pain. Denies prior LHC or stress test. Given anginal in nature w/ CV risk factors recommend ED eval. ASA 325 mg given, EMS activated. Constipation 52396453 K5 9.00 Pt endorsing hx chronic constipati on but no BM x 5 days and nausea w/ feculent burping, not passing gas. Recommend ED eval to r/o bowel obstructio n. [id number] Cordelia Marinelli MD Main - [facility] [address] [place] [address] [phone] 04/05/2023 18:28:16 2023 09:34:37 Dizziness 976843061 R42 [id number] Vangie Rollins MD Main - [facility] [address] [place] [address] [id number] 08/09/2023 17:29:23 08/09/2023 23:44:24 Cellulitis [id number] L03.90 [id number] Joey Cameron MD Main - [facility] [address] [place] [address] [id number] 09/06/2023 12:33:23 09/06/2023 15:00:26 Viral gastroenteritis 169100483 A08.4 This 73-year-ol d female has had a dry cough and diarrhea for several days, and she thinks she may have been exposed to COVID-19. Her COVID-19 and flu screens were negative. The patient had altered mental status of unclear etiology, so I recommende d that she be sent to the ER for further evaluation and treatment. [id number] DANIS OCHOA MD Main - [facility] [address] [place] [address] [id number] 0 09/30/2023 13:22:26 09/30/2023 23:01:42 Wound of skin 015659466 T14.8XXA Evaluation in the field was performed by my research advisor colleague, as noted above, I provided real-time direction and supervisio n for this visit. The evaluation revealed 73 yo female with concerns for reinfectio n of RLL abdominal wall wound infection. Pt has a very large abdominal pannus and was recently treated in the hospital for an abdominal wall abscess with surgical debridemen t at [facility]. This was several weeks ago. After receiving antibiotic s she was discharged home. She was doing well but developed fevers and chills, and mild diarrhea. Subsequent ly she was admitted to the hospital. Treated with Keflex. and wound looked well. Today she was seen by wound nurse with concerns for reinfectio n given mild drainage. Pt denies fever, chills. She is tolerating PO but has not been eating and drinking enough. No signs of systemic toxicity including absence of fever, chills, tachycardi a. No hx of MRSA infection and per patient Keflex worked well. Per research advisor exam no tenderness to palpation around the wound, minimal surroundin g erythema. Unfortunat magalis no PCP today or over the weekend. Impression :Abdominal wall wound infection Plan:Ringe r's lactate 500 ml IV x1BMP with creat 1.5superfi cial wound culture- most likely will not help to drive treatment but if shows MRSA will need change of abx to BactrimVan comycin 1 gram x1 nowRx sent to her pharmacy for Cefadroxil 1 gram daily x10 days.John nue wound care with VNA as scheduledW ill arrange f/u with us for tomorrow . If wound looks worse will need to go to ED Primary care, consider: please arrange for f/u within 1 week Dispositio n: We discussed the diagnostic uncertaint y of home visits and the risk associated with this. In this case, the patient and I felt this to be an acceptable and reasonable amount of risk given the benefit of avoiding an ED visit. We discussed the need to seek care urgently/e mergently in the setting of any new or worsening serious symptoms, particular ly fevers, chills, worsening of the drainage from the wound, increased redness around the wound or any other concerns. [id number] Edil Borges MD Main - [facility] [address] [place] [address] [phone] 0 10/01/2023 11:07:05 10/02/2023 10:28:44 Abdominal pain 41451065 R10.9 Pt has a very large abdominal pannus and was recently treated in the hospital for an abdominal wall abscess with surgical debridemen t at [facility]. This was several weeks ago. After receiving antibiotic s she was discharged home. She was doing well but developed fevers and chills, and mild diarrhea. Subsequent ly she was admitted to the hospital. Treated with Keflex. and wound looked well. Seen by [facility] on 09/30 and given Vancomycin with PO Cefadroxil . Patient unable to pick this up. Prom Burn Off Operator assisted in patient picking up medication . Advised to take prescribed course, have VNA dress wound daily, and if continued sloughing would recommende d evaluation in clinic for debridemen t. Discussed red flag signs for which to seek higher level of care. [id number] Marimar Johnson MD Main - [address] [id number] 0 10/15/2023 13:13:45 10/17/2023 17:13:41 Cellulitis [id number] L03.90 Evaluation in the field was performed by my research advisor colleague, as noted above, I provided real-time direction and supervisio n for this visit. 73yo F recent surgical debridemen t of abd wall wound under pannus and abx, readmitted [facility] vancom[facility] and cefadroxil . Pt endorsing increased drainage and pain since completing abx about 48 hr ago (though should have finish abx 5d ago). On exam VS notable for hypothermi a but similar to reading from last visit other VS wnl. Exam notable for deep wound under pannus, when research advisor removed gauze chunk of necrotic tissue stuck to it. While I do not see any active purulence there is erythema and superior margin and pt endorsing malaise similar to prior episode of cellulitis . Will err on the side of caution and restart cefadroxil for 5d course (given cephalexin x1 by research advisor to start), encouraged her to call surgeron's office Tuesday to discuss urgent eval and possible need for further debridemen t given necrotic tissue and possible cellulitis . If develops fevers or other symptoms c/w sepsis would recommend hospitaliz ation for IV abx and closer monitoring , pt to take temp to ensure not true hypothermi a. We discussed the diagnostic uncertaint y of home visits and the risk associated with this. In this case, the patient and I felt this to be an acceptable and reasonable amount of risk given the benefit of avoiding an ED visit. We discussed the need to seek care urgently/e mergently in the setting of any new or worsening serious symptoms, shortness of breath, cough, chest pain, fever. [id number] Joey Cameron MD Main - [facility] [address] [place] [address] [id number] 0 10/22/2023 17:20:52 10/25/2023 10:06:40 Cellulitis of abdominal wall 36188329 L03.311 This 73-year-ol d female has a chronic wound on her abdomen that recently has become more inflamed with some drainage. I reviewed images of the area and it appears to be infected and necrotic. I recommende d that she go to the ER for further evaluation and treatment. The patient agreed with this plan. [id number] Elina Thorpe MD Main - [facility] [address] [place] [address] [id number] 0 08/02/2024 12:24:07 08/02/2024 23:24:41 Upper respiratory infection 58475357 J06.9 With some mild loose stool. With thick yellow sputum may have active bronchitis . The patient states she has had azithromyc in before without issue/for dose given she states her SPIRITUAL COUNSELOR a can picker and packer the rest of the prescripti on tomorrow-a llergies reviewed/p harmacy verified. Discussed benzonatat e with patient for her cough. She is aware it is not covered. Medic reviewed how to get a good Rx card to defray cost Medic checked blood sugar on his arrival which was elevated at 389 so a BMP was ordered/Marie s sliding scale which I encouraged her to adhere to. While her blood sugars are running high likely due to infection will increase her Lantus from 50 to 52 units daily while blood sugars are high but will need close follow-up with her PCP advised brat diet to avoid eating raw fruits except for banana and she may have applesauce stop grapes avoid anything fatty and dairy except for yogurt with active cultures- [place] [id number] Concetta Ramon MD Main - [facility] [address] [place] [address] [id number] 08/07/2024 13:10:23 08/07/2024 21:58:12 Upper respiratory infection 67659531 J06.9 [id number] Concetta Ramon MD Main - [facility] [address] [place] [address] [id number] 0 08/25/2024 10:34:40 08/25/2024 15:31:52 Cellulitis of right lower limb [id number] L03.115 [id number] Edil Borges MD Main - [facility] [address] [place] [address] [id number] 0 12/15/2024 10:39:03 12/15/2024 18:36:53 COVID-19 556600999 U07.1 Per below Bacterial conjunctivitis 279850154 H10.9 Rx erythromyc in. Acute COVID-19 029815834 8 U07.1 Within five day window of treatment. We discussed the benefit of Paxlovid to reduce the risk of hospitaliz ation and , and the potential downsides/ side effects, including dysgeusia, headache, COVID rebound, and the possibilit y of medication interactio ns despite my efforts to review medication s and milieu counselor on discontinu ation. We discussed alternativ es, including non-specif ic supportive care and referral for infusion. We felt this plan to be preferable . Some adler recommenda tions below:- Renal dosing of Paxlovid (most recent GFR of 56)- Hold Atorvastat in for duration of taking paxlovid- Advised to check INR every 3-4 days since on Warfarin [id number] Ronel Galvez MD Main - [facility] [address] [place] [address] [phone] 0 12/20/2024 19:48:19 12/21/2024 15:22:16 Cough 70614808 R05.9 [id number] Concetta Ramon MD Main - [facility] [address] [place] [address] [phone] 0 01/28/2025 20:11:04 01/28/2025 21:47:29 Health Concerns Section Related Observation LastModified by Organization Detai ls LastModified Time None Recorded Concern Status LastModified by Organization Details LastModified Time None Recorded Advance Directives Directive None Recorded Payers Encounter Date Sequence Insurance Name Policy Number Policy Loving Covered Member ID Loving Member ID Guarantor Name 08/07/2024 1 [facility] - DOS ON OR AFTER 2023 - DUAL ELIGIBLE - ALF OPTIONS AND ONE CARE (MEDICARE REPLACEMENT/ADV ANTAGE - HMO) Catrina Teresa [id number] Catrina Teresa 08/25/2024 1 [facility] - DOS ON OR AFTER 2023 - DUAL ELIGIBLE - ALF OPTIONS AND ONE CARE (MEDICARE REPLACEMENT/ADV ANTAGE - HMO) Catrina Teresa [id number] Catrina Teresa 12/15/2024 1 [facility] - DOS ON OR AFTER 2023 - DUAL ELIGIBLE - ALF OPTIONS AND ONE CARE (MEDICARE REPLACEMENT/ADV ANTAGE - HMO) Catrina Teresa [id number] Catrina Teresa 12/20/2024 1 [facility] - DOS ON OR AFTER 2023 - DUAL ELIGIBLE - ALF OPTIONS AND ONE CARE (MEDICARE REPLACEMENT/ADV ANTAGE - HMO) Catrina Teresa [id number] Catrina Teresa 01/28/2025 1 [facility] [employer] - DOS ON OR AFTER 2023 - DUAL ELIGIBLE - ALF OPTIONS AND ONE CARE (MEDICARE REPLACEMENT/ADV ANTAGE - HMO) Catrina Teresa [id number] Catrina Teresa Notes Date Note Type Note Provider Name and Address Organization Details Recorded Time 08/07/2024 text/html HPI: 74 y/o femalePMH: T2DM, PTSD, Anticoagulant, Morbid Obesity, HTN, CAD, GERDPatient seen on 08/02 by [facility] team for complaints of URI symptoms. Patient was able to be reached today (no phone at the time) and reports symptoms have continued even after treatment with prescribed medications. Patient reports cough, chest tightness and SOB at this time. ...................... ...................... ...................... ...................... ...................... ...................... ......... [facility] Nurse Triage Notes (Beatris Yoder): Chief Complaints: Cough, URI PMH: Diabetes, Hypertension, Severe Persistent Mental Illness (SPMI), Heart Disease Allergies: Penicillin, Clindamycin Other Allergies: lovenox Comments: HPI reviewed. No further information needed to process visit Prom Burn Off Operator Organization Information for Mitchell Callahan Business Legal Name: [facility] Address: [address] [place] [address], [place] [address], Transportation Engineer: Miguel Angel Bermudez MD GIRMA No.: [id number] Prom Burn Off Operator POC Test Results from Mitchell Callahan Rapid COVID antigen (13:04:09) COVID: - Rapid influenza antigen (13:04:10) Flu: - ...................... ...................... ...................... ...................... ...................... ...................... ......... Prom Burn Off Operator Note From Mitchell Callahan: Pt reporting sinus congestion and cough producing yellow sputum for one week. Pt was seen by [facility] last , rx azithromycin and benzonatate which have not improved sx. Pt not using any OTCs. Pt denies CP, SOB, GRAYSON, f/n/v/d. Allergy to clinda and lovenox. Pt is alert, NAD. VSS. Afebrile. Non focal neuro exam. Normal gait. No sinus tenderness. Unremarkable ENT exam. Lungs CTA. Benign ABD exam. No LE edema. Rapid covid and flu negative. Pt educated on fluticasone, cetirizine, guaifenesin and other supportive care. Pt instructed to f/u with PCP later this week if sx persist and present to the ED for new or worsening sx, which are reviewed with her. ...................... ...................... ...................... ...................... ...................... ...................... ......... Disposition: Fulfilled Concetta Ramon MD [address] [facility],[address], [place], [phone], [employer] 08/07/2024 13:41:06 08/25/2024 text/html HPI: 74 y.o. F c/o painful erythema near R lateral/posterior calf x 2 days. Her SPIRITUAL COUNSELOR told it appears there is a cut in the reddened area, though she doesn't recall any trauma to RLE and denies any active drainage or scab. Mbr denies fevers or swelling of RLE. She has hx of DVTs and PEs, though is on warfarin and states INR was in range at 2.0 on Mon 08/20. No cp or sob, but mbr was advised if these develop to call 911. She has been elevated BLE in recliner and was encouraged to continue when able. Mbr agreed to [facility] referral. She was also made aware she can call back 30/05 for any acute changes. PMHx includes anemia, CKD, CAD, MRSA, uterine neoplasm, morbid obesity. ...................... ...................... ...................... ...................... ...................... ...................... ......... [facility] Nurse Triage Notes (Malgorzata Donohue): Chief Complaints: Cellulitis PMH: Diabetes, Hypertension, Severe Persistent Mental Illness (SPMI), Heart Disease Allergies: Penicillin, Clindamycin Other Allergies: lovenox Comments: CRC RN DID NOT NEED FURTHER INFO---- call to member as we cannot accommodate a visit this evening, no answer, left, visit r/s- AC ...................... ...................... ...................... ...................... ...................... ...................... ......... Prom Burn Off Operator Note From Calvin Howard: [facility] makes pt contact, 74 yo F CC of Right Lower Leg wound with redness.[facility] obtains vital signs and a picture of the area in question, sent to [facility]. PT explains last tuesday she noticed some redness, by the next day afternoon it was an open wound and would ooze. PT reports pain in the area at rest and with movement, skin is warm around area in comparison to the opposite leg. PT reports a hx of PEs and susceptible to infection. PT denies chest pain, sob, n/v, or any fever. PT has cat scratches from a new kitten throughout but the area in question was not a cat scratch. PT reports an allergy to clindamycin and lovenox, confirmed with [facility] connects with [facility] and explains the above mentioned. [facility] confirms pt pharmacy and sends over a 5 day course of antibiotics. PT reports the ability to get the prescription today and is advised to start it today. Red flag discussed such as the area not improving after two days, redness or inflammation gets worse, chest pain, sob, or a fever pt is advised to seek a higher level of care such as 911. PT understands, [facility] clear. ...................... ...................... ...................... ...................... ...................... ...................... ......... Disposition: Fulfilled Concetta Ramon MD [address] [facility],[address], [place], [phone], [employer] 08/25/2024 11:42:09 12/15/2024 text/html HPI: 74 y/o femalePMH- T2DM, HTN, CAD, GERD, CKDPatient called to office to report on going cold symptoms since Tuesday. Patient reports experiencing fever, headache, nasal congestion, fatigue, poor appetite, sore throat, dizziness and nausea. ...................... ...................... ...................... ...................... ...................... ...................... ......... [facility] Nurse Triage Notes (Ramandeep Rizzo - RN): Chief Complaints: Common cold symptoms, Fatigue, Fever/chills, Headache, Nausea, Sore throat, Weakness PMH: Hypertension, Severe Persistent Mental Illness (SPMI), Coronary Artery Disease, Diabetes Mellitus Type 2, Gastroesophageal Reflux Disease (GERD), Chronic Kidney Disease PMH Reviewed at 12/14/2024 - 11:12 Allergies Reviewed at 12/14/2024 - 11:12 Comments: CRC RN did not require any additional information to process this visit. 12/14 8:47p- call to patient as we are at capacity, she is agreeable to a visit tomorrow 12/15- Prom Burn Off Operator Organization Information for Camacho Edgar Legal Name: [employer].? ? Address: [address] [place] [address] [place] [address], Transportation Engineer: Christopher BARROS No.: [id number] Prom Burn Off Operator POC Test Results from Camacho Edgar Rapid COVID antigen (10:48:47) COVID: - Attachments uploaded as part of this test result can be found under Documents section. Rapid influenza antigen (10:48:48) Flu: - ...................... ...................... ...................... ...................... ...................... ...................... ......... Prom Burn Off Operator Note From Camacho Edgar: JOVANY makes pt contact. She is found seated in a chair in her living room. She turns her head as JOVANY enters the apartment and says hello. She is morbidly obese and appears disheveled, as though she hasn't had any personal hygiene for several days and the apartment smells of diarrhea and body odor, but is otherwise clean. Pt is pale, but alert and answering questions and giving hx using a linear and logical thought pattern. She is not in acute respiratory distress and she is not bleeding anywhere. She tells KANE she has been feeling unwell since Tuesday. She endorses MARIE, body aches, subjective fever, cough, sore throat (that has since improved), and SOB w/ exertion. She says she just started having diarrhea this morning. Pt also endorses R eye itchiness, redness, and crusty discharge and irritation. She says she is staying hydrated w/ water, but has decreased food intake and her glucose has been up and down, with a reading of 350 this morning. She is amendable to evaluation and treatment today. [facility] obtains vital signs and pt is assessed. Pt is swabbed for COVID and flu. COVID test results were entered incorrectly as negative, but were positive. Photo of test result was uploaded. Lung sounds are clear and equal to auscultation. She has a mildly elevated temperature and her R eye is red and the conjunctiva is swollen. Pt's voice has a congested quality to it and her cough is intermittent. [facility] contacts [facility] and discusses the above. [facility] requests a photo of pt's med list and eye. [facility] prescribes Paxlovid and erythromycin for the pt and instructs her to contact her provider to arrange an INR check on Tuesday and to discontinue her atorvastatin while taking the Paxlovid. Pt is amendable to prescribed therapy and arranges for family to picker and packer her prescriptions and other supplies she may need. Pt thanks [facility] for coming. [facility] is clear. Report completed by LARY Edgar [id number]. ...................... ...................... ...................... ...................... ...................... ...................... ......... [facility] Consulted: Leon Borges ...................... ...................... ...................... ...................... ...................... ...................... ......... Disposition: Fulfilled Edil Borges MD [address] [facility],[address], [place], [phone], [employer] [place] [employer] 12/15/2024 13:10:24 12/20/2024 text/html HPI: 74 y/o femalePMH- T2DM, Morbid Obesity, HTN, CKD, Hx PE.POC INR today 5.8, patient holding coumadin.Patient seen on 12/15 by keri. +COVID, patient completed plaxlovid treatment. patient reports worsening productive cough (yellow phlegm), chest congestion, nasal congestion, fatigue and nausea. Patient is reports having an area on left thigh that is discolored, swollen and leaking fluid. patient seen in August for same complaint and treated for cellulitis. ...................... ...................... ...................... ...................... ...................... ...................... ......... [facility] Nurse Triage Notes (Ramandeep Rizzo - RN): Chief Complaints: Common cold symptoms, Cough, Fatigue, Nausea, Wound care PMH: Hypertension, Severe Persistent Mental Illness (SPMI), Coronary Artery Disease, Diabetes Mellitus Type 2, Gastroesophageal Reflux Disease (GERD), Chronic Kidney Disease PMH Reviewed at 12/20/2024 - : Allergies Reviewed at 12/20/2024 - :08 Comments: CRC RN did not require any additional information to process this visit. [employer] Organization Information for JuliaJose Juan roy [employer] Legal Name: [employer].? ? Address: [address] [place] [address], Transportation Engineer: Christopher Smart MD CLIA No.: [id number] [employer] POC Test Results from Julia, Corey [employer] Blood Glucose Measurement (19:38:09) Blood Glucose: 366 mg/dL Attachments uploaded as part of this test result can be found under Documents section. ...................... ...................... ...................... ...................... ...................... ...................... ......... Prom [employer] Note From Jose Juan Dumont: Was dispatched for a 74 Y/O female complaining of flu like symptoms. [facility] PT was found in her living room. PT is A/Ox4. PT reported she tested positive for covid Tuesday and has been on treatment for it with improvement. PT also reported today when she woke up she feels she is at day 1 with the symptoms again. PT vitals were obtained and an assessment was performed. Nothing remarkable was found upon completion of assessment. [facility] was contacted, [facility] instructed the PT to take over the counter medications to help with the symptom and to continue to self monitor for a fever. PT understood. Crew cleared ...................... ...................... ...................... ...................... ...................... ...................... ......... [facility] Consulted: Ronel Galvez ...................... ...................... ...................... ...................... ...................... ...................... ......... Disposition: Fulfilled Ronel Galvez MD [address] [facility],[address], [place], [id number], [employer] 12/20/2024 23:30:27 01/28/2025 text/html HPI: Patient had routine fasting labs done by PCP today notable for potassium 5.7, Cr 1.21, BUN 32, glucose 305, GFR 48. Reports adherence to all meds, is on both furosemide and lisinopril. She has no history of hyperkalemia. Renal function a little worse from baseline on today's labs. She isn't having any muscle cramping or palpitations today but has had these symptoms recently, also has had diarrhea. ...................... ...................... ...................... ...................... ...................... ...................... ......... CRC Nurse Triage Notes (Beatris Yoder): Chief Complaints: Abnormal Lab Value PMH: Hypertension, Severe Persistent Mental Illness (SPMI), Coronary Artery Disease, Diabetes Mellitus Type 2, Gastroesophageal Reflux Disease (GERD), Chronic Kidney Disease PMH Reviewed at 01/28/2025 18:05 Allergies Reviewed at 01/28/2025 - 18:05 Comments: HPI reviewed ...................... ...................... ...................... ...................... ...................... ...................... ......... Prom Burn Off Operator Note From Calvin Howard: [facility] makes pt contact a 74 yo F CC of abnormal labs from PCP. [facility] obtains vital signs. [facility] contacts [facility] for authorization. [facility] attempts x3 lab draw via butterfly needles. R Forearm, R hand, Left ac all unsuccessful. Pt explains she is a very hard stick and that phlebotomy had trouble as well. [facility] reconnects [facility] nd explains the difficulty in obtaining labs. [facility] advises pt reach out to her PCP about getting labs redrawn. [facility] expresses that PT is asymptomatic and that her potassium is not overly concerning. [facility] reiterates conversation with [facility] to pt and explain that if she gets chest pain, sob, fast heart rate, slow heart rate, or if anything feels unwell to go to the emergency room/ call 911. PT understands. [facility] clears. ...................... ...................... ...................... ...................... ...................... ...................... ......... [facility] Consulted: Concetta Ramon ...................... ...................... ...................... ...................... ...................... ...................... ......... Disposition: Fulfilled Concetta Ramon MD [address] [place] [address],[address], [place], [phone], [employer] 01/28/2025 21:47:28 OBGyn Episode No OBEpisode recorded.
--- OUTSIDE RECORDS SUMMARY | 2025-03-07 15:27 | XMS_ITS | Data Portability ---
Author Organization [place] - [facility] Address [address] [place] [address] Care Team Providers Care Raisin Separator Operator Name Role Phone AMBROSIO GLASS Primary Care Provider [facility] OTHER Assessment Encounter Date Assessment Date Assessment LastModified by Organization Details LastModified Time 08/15/2021 08/15/2021 Brief History: 71 y/o F PMH morbid obesity, uterine CA, DM, HChol, HTN, DVT/PE on coumadin, s/p tonsillectomy who presents accompanied by a female control electrician with three days of R ear pain. Pt is new to these symptoms, new to this provider but not new to . Summary of Exam: Afebrile, vitals stable. Morbidly obese but steady with walker. LS CTAB. RRR, no MRG. R ear with TM intact with effusion and external canal with trace blood. No bulge or perforation. Pharynx unremarkable s/p tonsillectomy and uvula is midline. LAD apprecation. FROM and supple neck Work up/Results: Clinical exam DDx considered & Medical Decision Making: Pt presents with R AOM. No fever or meningismus. LS CTAB without concerns for PNA. Pt with steady gait with walker. Pt prescribed Augmentin with medication uses and side effects discussed including risk of bleeding with coumadin. Pt stated understanding. FU return precautions reinforced and follow up with PCP. In order to obtain further information and compare any laboratory results/values, I have accessed old patient records. This information was pertinent in my medical decision making today. Proper Personal Protective Equipment (PPE), including gloves, surgical mask were donned and doffed appropriately and all equipment cleaned using approved technique with germicidal disposable wipes prior to and after care of this patient according to [facility]'s infection prevention protocols. Time On Scene with Patient: 00:19:30 aries Not available 08/15/2021 17:17:56 10/11/2021 10/11/2021 Overview/History : 71 YO F PMH DM, uterine CA, and hx of wounds new to provider but known to . Pt being seen today for a wound eval. She has redness to her abdominal fold and L breast. She has required tx for cellulitis and fungal infx in the past. Sx's initially began last Tue on Oct 09, ~48 hrs. [facility] services come in and . Denies fevers/chills, other lesions. No other associated sx's. She has been trying clotrimazole cream and nystatin to the site w/o relief thus far. She has recurrent infections and may have resistance to topical therapy at this time. Exam: Vitals: VSS Constitutional: 71 yo Well developed, well nourished, pleasant patient in no apparent distress. Nontoxic appearing. She is sitting upright comfortably watching football on TV. Eyes: no discharge, sclera / conjunctiva clear ENT: moist mucous membranes Pulm: Speaks in full sentences, no increased work of breathing. GI: Morbidly Obese, Soft, non-tender to palpation. No masses although difficult to adequately assess d/t body habitus, normal bowel sounds. : No CVA tenderness bilaterally. MS: Self ambulatory patient, moves all limbs without deficit, no evidence of trauma Neuro: No focal deficits Skin: Intertrigo under the L breast, L axilla as well as underneath the pateint's abdominal fold. There is some residue it seems from old creams and powders present tat can be wiped off. There are no open areas or wounds present upon my inspection. Psych: Calm, cooperative, non-manic DDx considered, but not limited to: intertrigo, cellulitis Work up/Results: N/a Plan/Discussion: Intertrigo: -Pt w/ recurrent issue w/ this d/t body habitus and DM hx -No open wounds, warmth, exudates present at this time -She has been using clotrimazole cream and nystatin powder w/o much effectiveness -She reports rash began on Tue but I suspect it has been progressing for longer based on extent -I will prescribe fluconazole 150 mg tablet once weekly for 4 weeks to treat the infection. I do not suspect bacterial at this time d/t lack of purulence, warmth, lymphadenopathy. -Educated heavily to keep area dry and went over ways she can keep the area dry. Educated on hygiene and weight loss and well as encouraged good diabetic control. -F/u emergently w/ worsening sx's, fevers/chills, spreading rash. -[facility]NA services check pateint's skin twice weekly and this is to continue -Pt was educated on s/e of fluconazole possibly affecting INR which she has checked weekly. She can have her coumadin dose adjusted as needed for any changes. -Pt is in agreement w/ the above plan and verbalizes understanding. She has no further questions or concerns at this time. She thanks us for her care today. In order to obtain further information and compare any laboratory results/values, I have accessed patient records on the [employer]. This information was pertinent in my medical decision making today. [email or web address] Not available 10/11/2021 14:28:13 12/02/2021 12/02/2021 Time On Scene with Patient: 00:54:09 Overview/History : 71 year old female known to , new to provider, seen today for 2 days complaints of worsening lump lower right abd with increased size, pain, redness. No fever, no drainage. Has had previous bouts of cellulitis in past due to body habitus. Hisory of IDDM, PE, HTN, pulmonary emboli on coumadin. Blood sugars have been baseline 200's. Last INR therapeutic at 2.3. Exam: Non-toxic appearing, afebrile with vital stable; firm, slightly indurated softball sized area right lower abdomen with pale erythema; approx 1cm slightly fluctuant area in lower center with scabbed area just above. No signifant area of fluid appreciated to be drained. DDx considered, but not limited to: cellulitis with abscess: due to appearance and history Diabetic ulcer: less likely due to appearance, controlled blood sugars Cyst/foreign body Work up/Results: No work up indicated at this time; erythema marked with marker Plan/Discussion: start Keflex 500mg QID x 7 days with probiotics/kefir 3-4 times a day. Continue with warm compresses at least 4 times a day. Note no q tips to ear canal as well; keep ears clean and dry, do not pick scabs, keflex will help any local skin infection -Monitor for any increased redness, pain, fever, drainage; seek medical attention in ED otherwise call PCP for follow up 5-7 days Proper Personal Protective Equipment (PPE), including gloves, eye protection and masks were donned and doffed appropriately and all equipment cleaned using approved technique with germicidal disposable wipes prior to and after care of this patient according to [facility]'s infection prevention protocols. [email or web address] Not available 12/02/2021 19:31:30 06/26/2022 06/26/2022 DDX: cellulitis, abscess, post op infection. Pt has a surgical incision that has dehisced and appears to have had a rupture of an abscess with surrounding erythema. Unfortunately, there is concern witht his of internal spread into abdominal cavity. Discussed this with patient given her nausea and malaise. Pt agreeable to further evaluation including a CT scan of abdomen/pelvis with IV contrast at the [facility]> Report was given to the ED in person as they were not answering the phone when called and patient's address was a short distance to the ED. [email or web address] Not available 06/26/2022 15:20:45 Plan of Treatment Reminders Order Date Submit Date Provider Last Modified By Organization Details Last Modified Time Details Appointments None recorded. Lab None recorded. Referral None recorded. Procedures None recorded. Surgeries None recorded. Imaging None recorded. Medication Orders doxycycli ne hyclate 100 mg capsule 2021 022 DAR Not available 12:06:47 cephalexi n 500 mg tablet 2021 022 [email or web address] Not available 11:49:17 fluconazo le 150 mg tablet 2020 021 [email or web address] Not available 12:29:12 Augmentin 875 mg-125 mg tablet 2020 021 [email or web address] [facility], [address] [place] [address], [place], [address], 11:49:10 Patient TargetsNo targets recorded. Patient Instructions Encounter Date Encounter Id Patient Instructions Last Modified By Organization Details Last Modified Time 08/15/2021 [id number] ear infection (otitis media): care instructions aries Not available 08/15/2021 16:57:57 Please follow up with your primary care provider or specialist to be rechecked or seek medical attention if your symptoms do not go away or get worse. If you have additional concerns or develop a change in your condition between 8am-10pm, please call [facility] at [phone] to help navigate your care. aries Not available 08/15/2021 16:58:17 12/02/2021 [id number] skin abscess: ca re instructions [email or web address] Not available 12/02/2021 12:52:58 You were seen to day for concerns over a painful abdominal skin bump -Concerned for abscess with localized cellulitits, infection of the skin. Not enough fluid appreciated to open and drain -Warm compresses/soaks at least 4 times day -Take antibiotics with probiotics/kefir as prescribed. -Call if any increased redness, fever, pain or seek medical attention in ER; -Frantz PCP for follow up in 5-7 days corin Not available 12/02/2021 12:52:39 02/21/2022 [id number] Thank you for yo ur visit with [facility] today. You may have had laboratory tests or cultures performed today. At this time, we do not feel that you have an infection that requires hospitalization. However, infections can get worse, even with antibiotics. If you have worsening redness, pain or fever, go immediately to the Emergency Department. Please follow up with your primary care provider or with the specialist referral you were given, within 12-24 hours to be re-examined. If you develop any new or worsening symptoms and need after hours care, please go to nearest ER and/or call 911. If you have additional concerns or develop a change in your condition between 8am-10pm, please call [facility] at [phone] to help navigate your care. Thank you for your visit with [facility] today. You were seen today for treatment of a wound. Please seek immediate medical attention if you develop increased pain, redness, or swelling of your wound. Also, you should be evaluated if the wound becomes warm to the touch, or if there is a cloudy, yellow-brown discharge from the wound. There is always the possibility of a hidden tendon injury or foreign object in the wound. If you have problems moving your arm or leg, or if you see red streaks up the arm or leg, seek immediate medical attention. If you develop any new or worsening symptoms and need after hours care, please go to nearest ER and/or call 911. If you have additional concerns or develop a change in your condition between 8am-10pm, please call [facility] at [phone] to help navigate your care. Not available 02/21/2022 11:49:29 Reason for Referral None Reported. Problems Name Problem SNOMED Code Status Onset Date Resolution Date Notes Provider Name and Address Organization Details Recorded Time Diabetes mellitus 39028009 Active 020 FIORELLA BOLIVAR NP [address], [place], [address], [place] [facility] 0 16:26:18 Problem Notes None recorded. Procedures Surgical History Date Name Laterality Status Provider Name and Address Organization Details Recorded Time 02/29/20 21 Medication Review completed Yaritza Jara NP [address] [place], [address], [place] [facility] 02/28/2021 14:26:16 04/21/20 19 Venipuncture - DH completed KANDACE MARCH NP [address] [place], [address], [place] [facility] 04/21/2019 15:09:32 Tonsillectomy completed LASHONDA ROCHA NP [address] [place], [address], [place] [facility] 08/15/2021 17:06:07 partial hysterectomy completed CECE LUNDY NP [address] [place], [address], [place] [facility] 04/10/2019 13:05:28 Imaging Results None recorded. Procedure Notes None recorded. Medical Equipment None Reported. Allergies Allergen ID Allergen Name Allergen Category Reaction Reaction Severity Criticality Documentation Date Start Date Code Code System Note Provider Name and Address Organization Details Recorded Time 678419 Lovenox medicatio n Not available Not available Not available 02/26/2021 79236 6 RxNorm FIORELLA BOLIVAR , FINANCIAL ACCOUNTING MANAGER [address], [facility] [place], [address], [place] [facility] 1 17:08:39 27563 Product containin g penicilli n (product) medicatio n rash Not available Not available 04/10/2019 97667 8001 SNOMED FIORELLA BOLIVAR , FINANCIAL ACCOUNTING MANAGER [address], [facility] [place], [address], [place] [facility] 1 17:08:44 00616 clindamyc in Not available rash Not available Not available 04/10/2019 2582 RxNorm CECE LUNDY, FINANCIAL ACCOUNTING MANAGER [address], [facility] [place], [address], [place] [facility] 9 12:57:04 Medications Name Sig Start Date Stop Date Status Note LastModified by Organization Details LastModified Time delivery fee active Not Available Not Available Not Available Santyl 250 unit/gram topical ointment 02/26 completed Not Available Not Available Not Available fluconazole 100 mg tablet TAKE 1 TABLET BY MOUTH DAILY FOR 3 DAYS active Not Available Not Available No t Available atorvastati n 40 mg tablet active Not Available Not Available Not Available silver sulfadiazin e 1 % topical cream APPLY A 1/16 INCH (1.5 MM) THICK LAYER TO ENTIRE BURN AREA BY TOPICALRO PAWAN 2 TIMES PER DAY 02/26 completed Not Available Not Available Not Available metformin 500 mg tablet 11/12 completed Not Available Not Available Not Available atorvastati n 80 mg tablet active Not Available Not Available Not Available nystatin 100,000 unit/mL oral suspension SHAKE LIQUID AND TAKE 4 ML BY MOUTH FOUR TIMES DAILY FOR 10 DAYS active Not Available Not Available No t Available acetaminoph en 325 mg tablet active Not Available Not Available Not Available prednisone 10 mg tablet 40 mg administe red on scene. Time administe red: 1320 11/12 completed Not Available Not Available Not Available gabapentin 600 mg tablet active Not Available Not Available Not Available doxycycline hyclate 100 mg capsule TAKE 1 CAPSULE BY MOUTH TWICE DAILY FOR 7 DAYS active Not Available Not Available No t Available tizanidine 2 mg tablet active Not Available Not Available Not Available Vitamin C 500 mg tablet active Not Available Not Available Not Available nystatin 100,000 unit/gram topical ointment 02/26 completed Not Available Not Available Not Available tizanidine 4 mg tablet 02/26 completed Not Available Not Available Not Available fluconazole 150 mg tablet TAKE 1 TABLET BY MOUTH ONCE WEEKLY. HOLD ATORVASTA TIN ON THAT DAY. active Not Available Not Available No t Available hydrocodone 5 mg-acetamin ophen 325 mg tablet 04/10 completed Not Available Not Available Not Available Nystop 100,000 unit/gram topical powder APPLY TO THE AFFECTED AREA(S) BY TOPICAL ROUTE 2 TIMES PER DAY active Not Available Not Available No t Available warfarin 7.5 mg tablet 04/10 completed Not Available Not Available Not Available senna 8.6 mg tablet active Not Available Not Available No t Available fluconazole 200 mg tablet TAKE 1 TABLET BY MOUTH DAILY FOR 7 DAYS active Not Available Not Available No t Available FreeStyle Lancets 28 gauge active Not Available Not Available Not Available sumatriptan 25 mg tablet TAKE 1 TABLET BY MOUTH DAILY. MAY REPEAT AT LEAST 2 HOURS. NO MORE THAN 2 DOSES / DAILY NEEDED BY MOUTH 2 TIMES A DAY 7 DAYS active Not Available Not Available No t Available prednisone 20 mg tablet Take 2 tablets every day by oral route. 11/12 completed Not Available Not Available Not Available ceftriaxone 250 mg solution for injection Take 1 g every day by injection route for 1 day. 08/15 completed Not Available Not Available Not Available Lantus U-100 Insulin 100 unit/mL subcutaneou s solution 02/26 completed Not Available Not Available Not Available bacitracin 500 unit/gram topical ointment 02/26 completed Not Available Not Available Not Available metronidazo le 500 mg tablet 04/10 completed Not Available Not Available Not Available lidocaine HCl 2 % mucosal jelly 02/26 completed Not Available Not Available Not Available acetaminoph en 300 mg-codeine 30 mg tablet 05/05 completed Not Available Not Available Not Available chlorthalid one 25 mg tablet Take 1 tablet every day by oral route. 11/12 completed Not Available Not Available Not Available bacitracin zinc 500 unit/gram topical ointment REG TO ABD ULCERATIO NS TWICE D 02/26 completed Not Available Not Available Not Available sulfamethox azole 800 mg-trimetho prim 160 mg tablet TAKE 1 TABLET BY MOUTH TWICE DAILY FOR 7 DAYS active Not Available Not Available No t Available doxycycline monohydrate 100 mg tablet 02/26 completed Not Available Not Available Not Available tramadol 50 mg tablet active Not Available Not Available No t Available ketorolac 0.5 % eye drops 02/26 completed Not Available Not Available Not Available oxycodone-a cetaminophe n 5 mg-325 mg tablet 11/12 completed Not Available Not Available Not Available magnesium oxide 400 mg (241.3 mg magnesium) tablet 02/26 completed Not Available Not Available Not Available meclizine 25 mg tablet active Not Available Not Available Not Available amlodipine 10 mg tablet 05/05 completed Not Available Not Available Not Available doxycycline monohydrate 100 mg capsule TAKE 1 CAPSULE BY MOUTH TWICE A DAY FOR 7 DAYS 02/26 completed Not Available Not Available Not Available cephalexin 500 mg capsule TAKE 1 CAPSULE BY MOUTH FOUR TIMES DAILY FOR 7 DAYS active Not Available Not Available No t Available nystatin 100,000 unit/gram topical cream APPLYTOPI ATUL THREE TIMES DAILY OVER THE ABDOMINAL FOLDS AND GROIN X 2 WEEKS active Not Available Not Available No t Available clotrimazol e-betametha sone 1 %-0.05 % topical cream APPLY SPARINGLY TO THE AFFECTED AREA(S) TWICE DAILY.. MAX DURATION OF USE 2 WEEKS active Not Available Not Available No t Available diphenhydra mine 25 mg tablet 50 mg PO administe red on scene. Time administe red: 1320 11/12 completed Not Available Not Available Not Available lisinopril 10 mg tablet active Not Available Not Available Not Available warfarin 5 mg tablet active Not Available Not Available No t Available docusate sodium 100 mg capsule active Not Available Not Available N ot Available gabapentin 300 mg capsule Take 1 capsule twice a day by oral route for 14 days. 02/26 completed Not Available Not Available Not Available omeprazole 20 mg capsule,del ayed release active Not Available Not Available Not Available Banophen 25 mg capsule Take 2 capsules 3 times a day by oral route. 11/12 completed Not Available Not Available Not Available cephalexin 500 mg tablet Take 1 tablet every 6 hours by oral route for 7 days. 02/21 completed Not Available Not Available Not Available mupirocin 2 % topical ointment 02/26 completed Not Available Not Available Not Available furosemide 20 mg tablet active Not Available Not Available Not Available polyethylen e glycol 3350 17 gram/dose oral powder 04/10 completed Not Available Not Available Not Available levofloxaci n 500 mg tablet 11/12 completed Not Available Not Available Not Available levofloxaci n 750 mg tablet 02/26 completed Not Available Not Available Not Available ferrous sulfate 325 mg (65 mg iron) tablet,migel yed release 02/26 completed Not Available Not Available Not Available ondansetron 4 mg disintegrat ing tablet DISSOLVE 1 TABLET ON THE TONGUE EVERY 8 HOURS FOR 3 DAYS NEEDED FOR NAUSEA OR VOMITING active Not Available Not Available No t Available fluticasone propionate 50 mcg/actuati on nasal spray,suspe nsion 11/12 completed Not Available Not Available Not Available clotrimazol e 1 % topical cream REG TO RED AREA BENEATH ABDOMINAL FOLD TOPICALLY BID active Not Available Not Available No t Available doxycycline hyclate 100 mg tablet TAKE 1 TABLET BY MOUTH TWICE DAILY FOR 10 DAYS 02/21 completed Not Available Not Available Not Available Hibiclens 4 % topical liquid active Not Available Not Available Not Available ipratropium bromide 21 mcg (0.03 %) nasal spray 11/12 completed Not Available Not Available Not Available amoxicillin 875 mg-potassiu m clavulanate 125 mg tablet TAKE 1 TABLET BY MOUTH EVERY 12 HOURS FOR 5 DAYS 02/21 completed Not Available Not Available Not Available simethicone 80 mg chewable tablet 04/10 completed Not Available Not Available Not Available oxycodone 5 mg tablet TAKE 1 TABLET BY MOUTH EVERY 6 HOURS FOR 2 DAYS NEEDED FOR MODERATE PAIN active Not Available Not Available No t Available Antifungal (miconazole ) 2 % topical cream 02/26 completed Not Available Not Available Not Available enoxaparin 100 mg/mL subcutaneou s syringe 04/10 completed Not Available Not Available Not Available Mucinex 600 mg tablet, extended release TAKE 1 TABLET BY MOUTH EVERY 12 HOURS FOR 10 DAYS 02/26 completed Not Available Not Available Not Available enoxaparin 120 mg/0.8 mL subcutaneou s syringe INJECT THE CONTENTS OF 1 SYRINGE SUBCUTANE OUSLY EVERY 12 HOURS FOR 5 DAYS 11/12 completed Not Available Not Available Not Available Novolog FlexPen U-100 Insulin aspart 100 unit/mL (3 mL) subcutaneou s active Not Available Not Available Not Available ciprofloxac in 0.3 %-dexametha sone 0.1 % ear drops,suspe nsion SHAKE LIQUID AND INSTILL 4 DROPS TO AFFECTED EAR TWICE DAILY FOR 7 DAYS active Not Available Not Available No t Available Dr. Carbajal's Diaper 10 % topical ointment active Not Available Not Available Not Available metoprolol tartrate 25 mg tablet 11/12 completed Not Available Not Available Not Available duloxetine 60 mg capsule,del ayed release active Not Available Not Available Not Available OneTouch UltraSoft Lancets 02/26 completed Not Available Not Available Not Available Acid Controller 10 mg tablet Take 1 tablet every day by oral route. 11/12 completed Not Available Not Available Not Available enoxaparin 11/12 completed Not Available Not Available Not Available lisinopril 11/12 completed Not Available Not Available Not Available BD Ultra-Fine Short Pen Needle 31 gauge x 5/16 02/26 completed Not Available Not Available Not Available Mintox Maximum Strength 400 mg-400 mg-40 mg/5 mL oral suspension 04/10 completed Not Available Not Available Not Available zinc sulfate 50 mg zinc (220 mg) capsule TK 1 C PO DAILY active Not Available Not Available No t Available Januvia 50 mg tablet active Not Available Not Available No t Available FreeStyle Lite Strips active Not Available Not Available Not Available cholecalcif eboni (vitamin D3) 1,250 mcg (50,000 unit) capsule 02/26 completed Not Available Not Available Not Available Lantus Solostar U-100 Insulin 100 unit/mL (3 mL) subcutaneou s pen active Not Available Not Available Not Available Humalog KwikPen (U-100) Insulin 100 unit/mL subcutaneou s INJECT 2 6 UNITS SUBCUTANE OUSLY BEFORE MEALS BASED ON SLIDING SCALE 02/26 completed Not Available Not Available Not Available FreeStyle [place] Lite kit 02/26 completed Not Available Not Available Not Available diclofenac 1 % topical gel APPLY 2 GRAMS TO THE AFFECTED AREA(S) BY TOPICAL ROUTE 4 TIMES PER DAY 02/26 completed Not Available Not Available Not Available cholecalcif eboni (vitamin D3) 125 mcg (5,000 unit) tablet active Not Available Not Available Not Available Cerovite Senior 0.4 mg-300 mcg-250 mcg tablet active Not Available Not Available Not Available Metamucil Fiber Singles 3.4 gram oral powder packet MIX 1 PACKET WITH 8 OUNCES OF LIQUID DIRECTED AND DRINK ONCE DAILY NEEDED active Not Available Not Available No t Available Vitamin D3 50 mcg (2,000 unit) capsule active Not Available Not Available Not Available Unifine Pentips 31 gauge x 3/16 needle active Not Available Not Available Not Available Culturelle 15 billion cell sprinkle capsule 04/10 completed Not Available Not Available Not Available PreserVisio n AREDS-2 250 mg-90 mg-40 mg-1 mg capsule active Not Available Not Available N ot Available Lactobacill us acidophilus 2 billion cell tablet Take 2 tablets twice a day by oral route for 20 days. 12/02 completed Not Available Not Available Not Available Ozempic 0.25 mg or 0.5 mg (2 mg/1.5 mL) subcutaneou s pen injector active Not Available Not Available Not Available Daily Probiotic (S. boulardii) 250 mg capsule TAKE 1 CAPSULE BY MOUTH TWICE DAILY FOR 5 DAYS active Not Available Not Available No t Available FreeStyle Carlitos 2 Sensor kit active Not Available Not Available N ot Available FreeStyle Carlitos 2 [place] active Not Available Not Available Not Available Ozempic 1 mg/dose (4 mg/3 mL) subcutaneou s pen injector active Not Available Not Available Not Available Vitals Date Recorded Respiratory rate Oxygen saturation Oxygen saturation in Arterial blood by Pulse oximetry Body temperature Heart rate Systolic blood pressure Diastolic blood pressure Provider Name and Address Organization Details Last Updated DateTime 1 18 /min 96 % 96 % 97.6 [degF] 85 /min 124 mm[Hg] 74 mm[Hg] Not Available [facility] 1 16:56:11 Date Recorded Oxygen saturation Oxygen saturation in Arterial blood by Pulse oximetry Body temperature Respiratory rate Heart rate Systolic blood pressure Diastolic blood pressure Provider Name and Address Organization Details Last Updated DateTime 1 95 % 95 % 97.6 [degF] 20 /min 75 /min 144 mm[Hg] 54 mm[Hg] Not Available [facility] 1 13:41:13 Date Recorded Body temperature Heart rate Oxygen saturation Oxygen saturation in Arterial blood by Pulse oximetry Respiratory rate Systolic blood pressure Diastolic blood pressure Provider Name and Address Organization Details Last Updated DateTime 2 98.2 [degF] 80 /min 95 % 95 % 20 /min 122 mm[Hg] 70 mm[Hg] Not Available [facility] 2 12:30:10 Date Recorded Body temperature Oxygen saturation Oxygen saturation in Arterial blood by Pulse oximetry Respiratory rate Heart rate Systolic blood pressure Diastolic blood pressure Provider Name and Address Organization Details Last Updated DateTime 2 97.8 [degF] 97 % 97 % 18 /min 75 /min 136 mm[Hg] 70 mm[Hg] Not Available [facility] 2 11:52:45 Date Recorded Heart rate Oxygen saturation Oxygen saturation in Arterial blood by Pulse oximetry Respiratory rate Body temperature Systolic blood pressure Diastolic blood pressure Provider Name and Address Organization Details Last Updated DateTime 2 80 /min 97 % 97 % 20 /min 98.7 [degF] 158 mm[Hg] 80 mm[Hg] Not Available [facility] 2 14:00:44 Social History Question Answer Notes LastModified by Organizat ion Details LastModified Time Tobacco Smoking Status Never Smoker CECE LUNDY NP [address] [place], [address], [place] [facility] 04/10/2019 13:02:10 Do You Have An Advance Directive? Yes Sister In Law Catrina Teresa [facility] Information not available 04/10/2019 Within The Past 12 Months, Has It Happened That The Food You Bought Just Didn't Last And You Didn't Have Money To Get More. Obese Information not available 04/10/2019 Within The Past 12 Months, Have You Worried That Your Food Would Run Out Before You Got Money To Buy More. Yes Information not available 04/10/2019 Fall Risk: Do You Feel Unsteady When Standing Or Walking? No Information not available 04/10/2019 Marital Status Single Information not available 04/10/2019 What Was The Date Of Your Most Recent Tobacco Screening? 04/10/2019 Information not available 05/31/2019 Sex: Unknown Functional Status None recorded. Mental Status None recorded. Family History Relationship Description Onset Age of this Age Resolved Age Notes LastModified by Organization Details LastModified Time Father Coronary arterioscler osis [email or web address] Not available 04/10 13:01:47 Mother Malignant neoplasm of lung [email or web address] Not available 04/10 13:02:00 Medical History Condition Response Diabetes Y Coronary Artery Disease N Cancer Y Depression N COPD N Asthma N High Cholesterol Y Pulmonary Embolism Y Hypertension Y Kidney Disease N Gynecological HistoryNo gynecological history recorded. Obstetrics History GPAL:G 0 P 0 0 0 0 Past Encounters Encounter ID Performer Location Encounter Start Date Encounter Closed Date Diagnosis/Indication Diagnosis SNOMED-CT Code Diagnosis ICD10 Code Diagnosis Note [id number] CE[facility] L[facility]DY [facility] [address] [facility] [place] [place] [address] 04/10/2019 12:53:53 04/11/2019 13:43:26 Allergic urticaria 08426408 L50.0 Internatio nal normalized ratio outside reference range 521831683 R79.1 1.7 today. PT will increase coumadin to 10mg (from 7.5mg) and recheck tomorrow [id number] KANDACE MARCH NP [facility] [address] [facility] [place] [address] 04/21/2019 14:02:43 04/25/2019 16:24:45 Pruritic disorder 764987411 L29.9 Weakness present 3159799 07 M62.81 Type 2 wilmar betes mellitus 87642266 E11.9 Long-term current use of anticoagulant 187710556 Z79.01 Drug withdrawal 17235402 5 F19.939 Hypertensive disorder 38 467840 I10 [id number] SCOT GONZALEZ NP [facility] [address] [facility] [place] [address] 05/23/2019 12:40:02 05/24/2019 12:04:24 Acute bacterial sinusitis 81322752 J01.90 [id number] FIORELLA BOLIVAR NP [facility] [address] [facility] [place] [address] 11/12/2019 16:22:15 11/15/2019 14:39:19 Wound cellulitis 593694869 L03.90 [id number] FIORELLASHELBIE BOLIVAR NP [facility] [address] [place] [address] 11/14/2019 18:58:45 11/15/2019 14:36:44 Wound cellulitis 685697926 L03.90 Type 2 wilmar betes mellitus without complication 310169383 E11.9 [id number] FIORELLA BOLIVAR NP [facility] [address] [facility] [place] [address] 11/17/2019 15:36:30 11/20/2019 21:10:30 Wound cellulitis 877710887 L03.90 Type 2 wilmar betes mellitus without complication 697268546 E11.9 [id number] YOUSIF BOWER NP [facility] [address] [facility] [place] [address] 05/05/2020 20:03:46 05/06/2020 15:19:08 Fungal infection by site 025803029 B49 Wound of skin 817462104 T14.8XXA Low back pain 286360934 M54.5 [id number] FIORELLA BOLIVAR NP [facility] - [facility] [address] [place] [address] 02/26/2021 17:05:47 02/27/2021 12:26:14 Cellulitis 488577176 L03.90 Type 2 wilmar betes mellitus without complication 460099150 E11.9 Morbid obesity 014791900 E66.01 [id number] Yaritza Jara NP [facility] - [facility] [address] [place] [address] 02/28/2021 14:16:54 03/01/2021 10:39:37 Cellulitis 935174403 L03.90 Type 2 wilmar betes mellitus 51151884 E11.622 Morbid obesity 715238885 E66.01 [id number] LASHONDA ROCHA NP [facility] [address] [facility] [place] [place] [address] 08/15/2021 16:27:32 08/24/2021 18:18:37 Acute right otitis media 670626246 H66.91 [id number] MARK Crook [facility] [address] [place] [address] 10/11/2021 13:28:00 10/15/2021 11:11:41 Candidiasis of skin 61435411 B37.2 [id number] Archana Waller NP [facility] - [facility] [address] [place] [address] 12/02/2021 12:24:41 12/05/2021 11:12:16 Cellulitis 968848375 L03.90 Abscess of skin and/or subcutaneous tissue 16295110 L02.91 [id number] MARK Valverde [facility] [address] [facility] [place] [place] [address] 02/21/2022 11:48:15 02/22/2022 18:27:10 Paronychia of finger 808943978 L03.012 Proper Personal Protective Equipment (PPE), including {{gloves, eye protection , masks, and gowns, shoe covers oz ves, eye protection and masks* oz ves, eye protection gloves, eye protection , N95 mask, gown, and shoe covers rain gical mask with face-shiel d, gloves, gown and shoe covers rain gical mask with face-shiel d, gloves}} were donned and doffed león blancas and all equipment cleaned using approved technique with germicidal disposable wipes prior to and after care of this patient according to [facility]'s infection prevention protocols. Overview/H istory: 71 yo female diabetic patient seen for redness of the left 2nd finger that drained pus on tuesday but has remained with some redness since. no fevers chills. no trauma to the area of concern. Exam: left 2nd finger with mild erythema from the cuticle distally with no tenderness , no drainage, no increased warmth, no fluctuant mass, no induration , no visible purulence under the skin. no streaking toward the palm. full active ROM of the all the fingers of the left hand. no pain on palpation of the palmar surface. DDx considered , but not limited to:flexor tenosynovi tiscelluli tisfelonpa ronychia Plan/Discu ssion:-giv en hx and presentati on paronychia of the left 2nd digit is most likley dx-appears to be improved vs it's onset-pt could most likley tx with warm soaks alone but given dx of T2DM and unsure of a1c/contro l, will tx with doxycyline -she is strongly encouraged 3+ times to perform WARM, NOT HOT, SOAKS with the finger AT LEAST 3x a day.-she is strongly encouraged to keep the area clean and dry after soaks-and she is very very strongly encouraged multiple times to seek emergent eval if redness begins toward her hand, she has decreased ROM of the fingers/baker nd, the palm becomes red and/or painful, of fevers/chi ll develop.-s he will call if there is no improvemen t in 48-72 hours In order to obtain further informatio n and compare any laboratory results/va lues, I have accessed {{old patient records* p atient records on the [facility] r eviewed records with the PCP}}. This informatio n was pertinent in my medical decision making today. [id number] SCOT GONZALEZ NP [facility] - [facility] [address] [place] [address] 06/26/2022 13:55:39 06/28/2022 12:39:56 Postoperative wound infection 38068259 T81.40XA Health Concerns Section Related Observation LastModified by Organization Detai ls LastModified Time None Recorded Concern Status LastModified by Organization Details LastModified Time None Recorded Advance Directives Directive Y: sister in law Catrina Ervin y Payers Encounter Date Sequence Insurance Name Policy Number Policy Loving Covered Member ID Loving Member ID Guarantor Name 08/15/2021 2 [place] [facility] Catrina Teresa [id number] Catrina Teresa 08/15/2021 1 [facility] - DOS PRIOR TO 2023 - DUAL ELIGIBLE (MEDICARE REPLACEMENT/ADV ANTAGE - HMO) Catrina Teresa [id number] Catrina Teresa 10/11/2021 2 [place] [facility] Catrina Teresa [id number] Catrina Teresa 10/11/2021 1 [facility] - DOS PRIOR TO 2023 - DUAL ELIGIBLE (MEDICARE REPLACEMENT/ADV ANTAGE - HMO) Catrina Teresa [id number] Catrina Teresa 12/02/2021 2 [place] [facility] Catrina Teresa [id number] Catrina Teresa 12/02/2021 1 [facility] - DOS PRIOR TO 2023 - DUAL ELIGIBLE (MEDICARE REPLACEMENT/ADV ANTAGE - HMO) Catrina Teresa [id number] Catrina Teresa 02/21/2022 2 [place] [facility] Catrina Teresa [id number] Catrina Teresa 02/21/2022 1 [facility] - DOS PRIOR TO 2023 - DUAL ELIGIBLE (MEDICARE REPLACEMENT/ADV ANTAGE - HMO) Catrina Teresa [id number] Catrina Teresa 06/26/2022 2 [place] [facility] Catrina Teresa [id number] Catrina Teresa 06/26/2022 1 [facility] - DOS PRIOR TO 2023 - DUAL ELIGIBLE (MEDICARE REPLACEMENT/ADV ANTAGE - HMO) Catrina Teresa [id number] Catrina eTresa Notes Date Note Type Note Provider Name and Address Organization Details Recorded Time 08/15/2021 text/html Catrina Teresa is a 71 y/o F PMH morbid obesity, uterine CA, DM, HChol, HTN, DVT/PE on coumadin, s/p tonsillectomy who presents accompanied by a female control electrician with three days of R ear pain. Pt denies using anything or taking anything for her symptoms. Reports the pain radiates into her jaw and down her neck. Pain with turning her head to the R and feels like fluid in her ear. No discharge or fever. Reports she feels fatigued. LASHONDA ROCHA, SUJIT [address] [place], [address], [place] [facility] 08/15/2021 17:18:07 10/11/2021 text/html 71 YO F PMH DM, uterine CA, and hx of wounds new to provider but known to .Pt being seen today for a wound eval. She has redness to her abdominal fold and L breast. She has required tx for cellulitis and fungal infx in the past. Sx's initially began last Tue on Oct 09, ~48 hrs. [facility] services come in Tu and Th. Denies fevers/chills, other lesions. No other associated sx's. She has been trying clotrimazole cream and nystatin to the site w/o relief thus far. She has recurrent infections and may have resistance to topical therapy at this time. MARK Wu [address], [place], [address], [place] [facility] 10/11/2021 14:28:22 12/02/2021 text/html 71 year old fema le known to , new to provider being seen today for increased size, redness, pain abdominal mass/cyst found by visiting nurse. She has a history of mulitple skin/abdominal absceses with cellulitis along with IDDM, HTN, pulmonary emboli on coumadin, morbid obesity. Occ chills, no fever as visiting nurse saw resident yesterday. Over the last 2 days noticed the painful, swollen lumb right lower abdomen that has gotten larger, more painful and more red. No resp or GI complaints. Blood sugars have been at her baseline low 200's. Took a hot shower, made the pain worse Archana Waller NP [address], [place], [address], [place] [facility] 12/02/2021 19:31:49 02/21/2022 text/html 71 yo female new to provider known to left 2nd finger with redness since (4th day today)tuesday she pushed on it and pus came outno past hx of [id number] with a1c unknownno fevers chillsno extension of pain or redness into the palm/hand MARK Valverde [address], [place], [address], [place] [facility] 02/21/2022 12:14:30 06/26/2022 text/html 72 year-old fema le with history of DM, morbid obesity, HTN, HLD, who calls to home for evaluation of a possible infection. Pt is a s/p susanna adkins 05/28. Incisions were healing well. She began having pain, redness and swelling to the RUQ incision site about 2 days ago.She reports not feeling right and nausea. She deneis fevers or chills. She had drainage to the site that is purulent in nature.It has continued to be painful to the area. SCOT GONZALEZ, SUJIT [address], [place], [address], [place] [facility] 06/26/2022 15:20:57 OBGyn Episode No OBEpisode recorded.
--- OUTSIDE RECORDS SUMMARY | 2025-03-07 15:27 | XMS_ITS ---
Author Organization [facility] Address [address] [place] [address] Care Team Providers Care Instant Potato Processor Name Role Phone Dr Julieta Griffin Primary Care Provider Christine vailable Pravin Holbrook Unavailable [phone] REASON FOR VISIT No Show Encounters Encounter Location Date Provider Diagnosis [facility] [address] [place] [address] 01/22/2025 Pravin Holbrook Plan Of Treatment No Information Progress Notes * Catrina TERESA ADOB: 2 (74 yo F)Acc No.[id number]:01/22/2025 Patient:?Catrina TERESA :1950???Age:74 Y???Sex:Female Address:[address] [place] [address] [address], [place], [address] * true * Date:? Generated for Printi ng/Ministerio/eTransmitting on:?03/07/2025 03:27 PM EDT
--- OUTSIDE RECORDS SUMMARY | 2025-03-07 15:28 | XMS_ITS ---
Author Organization [facility] Care Team Providers Care Finance Analyst Name Role Phone Hemal Temple Unavailable Unavailable Concetta Plunkett Unavailable Unavailable Allergies and adverse reactions Code CodeSystem Substance Reaction Severity StartDate Concern Status Lovenox Nausea (code- 692476123, SNOMED CT) Moderate 04/21/2020 active 2582 RXNORM Clindamycin Nausea (code- 445404479, SNOMED CT) Moderate 04/21/2020 active Care Team Name Role Address Phone Organization Dates Hemal Temple PCP [address], [address], [facility] (Office): : [facility] 04/21/2020 - 04/24/2020 Concetta Plunkett Attending Physician [address], [address], [place] [facility] (Office): [facility] 04/21/2020 - 04/24/2020 Immunizations Immunization Status Vaccine Details Vaccine Code CodeSystem Reed e Notes Influenza completed Influenza, split virus, trivalent, injectable, contains preservative 141 CVX created date: 04/22/2020 administere d date: 07/11/2019 TB 2 Step Mantoux Skin Test completed tuberculin skin test; unspecified formulation lotNumber: [id number] expiry: 10/12/2022 Mfg: PAR pharmaceical Given 0.1 ml Left Forearm intradermally Step 1 of Multi-step with next step required 98 CVX created date: 04/22/2020 consent date: 04/22/2020 administere d date: 04/22/2020 PCV13 (Pneumococcal Conjugate)Vaccine completed pneumococcal conjugate vaccine, 13 valent 133 CVX created date: 04/22/2020 administere d date: 04/12/2018 Mental Status Section Date Assessment Total Score Description 04/24/2020 CAM 0 No delirium ind icated 04/24/2020 BIMS 15 cognitively int act CAM 0 No delirium ind icated PHQ-9 00 Problems Problem # Description Date of onset Resolved Date Code CodeSystem Concern Status 1 ANEMIA, UNSPECIFIED [address] active 2 CELLULITIS OF ABDOMINAL WALL [address] active 3 CHRONIC KIDNEY DISEASE, UNSPECIFIED [address] active 4 ESSENTIAL (PRIMARY) HYPERTENSION [address] active 5 HYPERLIPIDEMIA, UNSPECIFIED [address] active 6 PRISON (CURRENT) USE OF ANTICOAGULANTS [address] active 7 MORBID (SEVERE) OBESITY DUE TO EXCESS CALORIES [address] active 8 SUPERFICIAL MYCOSIS, UNSPECIFIED [address] active 9 TYPE 2 DIABETES MELLITUS WITHOUT COMPLICATIONS [address] active 10 ACUTE CHOLECYSTITIS [address] active 11 ACUTE EMBOLISM AND THROMBOSIS OF UNSPECIFIED DEEP VEINS OF UNSPECIFIED LOWER EXTREMITY [address] active 12 BENIGN NEOPLASM OF UNSPECIFIED ADRENAL GLAND [address] active 13 CARPAL TUNNEL SYNDROME, UNSPECIFIED UPPER LIMB [address] active 14 CHRONIC PULMONARY EMBOLISM [address] active 15 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 [address] active 16 DYSPNEA, UNSPECIFIED [address] active 17 ERYTHEMA INTERTRIGO [address] active 18 LOW BACK PAIN [address] active 19 METHICILLIN RESISTAN T STAPHYLOCOCCUS AUREUS INFECTION THE CAUSE OF DISEASES CLASSIFIED ELSEWHERE [address] active 20 NON-CELIAC GLUTEN SENSITIVITY [address] active 21 OTHER DISORDERS OF CALCIUM METABOLISM 74451697 SNOMED CT active 22 OTHER HYPERPARATHYROIDISM 53907092 SNOMED CT active 23 OTHER LACK OF COORDINATION 473768229 SNOMED CT active 24 OTHER NONINFLAMMATOR Y DISORDERS OF OVARY, FALLOPIAN TUBE AND BROAD LIGAMENT [address] active 25 PANNICULITIS AFFECTI NG REGIONS OF NECK AND BACK, SITE UNSPECIFIED 98787509 SNOMED CT active 26 UNSPECIFIED ABNORMALITIES OF GAIT AND MOBILITY 11554519 SNOMED CT active 27 WEAKNESS [address] active Reason for Referral No Reasons for Referral Entered Social History Social History Observation Description Start Date End Date Code Code System Current Smoking Status Tobacco smoking consumption unknown 882569659 SNOMED CT Sex Assigned At Female 1950 48168-0 [facility] Vital Signs Code Code System Vitals Name Values and Units Timing Information 9279-1 [facility] Respiratory Rate Value=18.0 Units=/m in 04/24/2020 8462-4 [facility] Blood Pressure-Diastolic Value=68 Un its=mmHg 04/24/2020 8480-6 [facility] Blood Pressure-Systolic Mjgmu=729 Un its=mmHg 04/24/2020 8310-5 [facility] Body Temperature Value=98.8 Units=?? F 04/24/2020 8867-4 [facility] Heart rate Value=60.0 Units=/min 47429-9 [facility] O2 % BldC Oximetry Value=96.0 Units= % 04/24/2020 93901-1 [facility] Pain Level Value=0.0 04/24/2020 2339-0 [facility] Blood Sugar Lwtzo=669.0 Units=mg/dL 04/24/2020 22279-0 [facility] Weight Luvnh=591.5 Units=Lbs 8302-2 [facility] Height Value=60.0 Units=Inches 04/21/2020
--- OUTSIDE RECORDS SUMMARY | 2025-03-07 15:28 | XMS_ITS ---
Author Organization [facility] Address [address] [place] [address] Care Team Providers Care Client Services Director Name Role Phone Dr Julieta Griffin Primary Care Provider Christine vailable Pravin Holbrook Unavailable [phone] REASON FOR VISIT sooner appt Encounters Encounter Location Date Provider [facility] [address] [place] [address] 01/22/2025 Pravin Holbrook Plan Of Treatment No Information Progress Notes * Catrina TERESA ADOB: (74 yo F)Acc No.[id number]:01/22/2025 Progress Note Patient:SANAM Catrina Melanie Provider:?Pravin Holbrook DPM :1950???Age:74 Y???Sex:Female D ate:01/22/2025 Address:[address] [place] [address] [address], [place], [place]-[address] Pcp:Dr Julieta Griffin Subjective: * Chief Complaints: * ???1. Sooner appt. * Medical History:? Objective: * Vitals:? Assessment: Plan: * Treatment: * Images: * The named appointment provid er may or may not be the originator of this progress note, and it is not deemed complete until electronically signed by the appointment provider. Sign off status: Pending * Provider:?Pravin Holbrook DPM Date:?2024 Generated for Julius tipton/Ministerio/Isaias on:?03/07/2025 03:28 PM EDT
--- OUTSIDE RECORDS SUMMARY | 2025-03-07 15:28 | XMS_ITS | Patient Health Record ---
[facility] Organization [facility] Address [address] [place] [address] Care Team Providers Care Take Away Man Name Role Phone Dr Julieta Griffin Primary Care Provider Pravin Harp Unavailable [phone] Krysta Haile Unavailable [phone] Eloisa Rodríguez Unavailable [phone] Allergies Allergen (clinical drug ingredient) Drug/Non Drug Allergy documented on EMR Reaction Allergy Type Onset Date Status clindamycin Clindamycin HCl Unknown Drug Allergy Active enoxaparin Lovenox Unknown Drug Allergy Active Reason For Referral No Information Medications Medication SIG (Take, Route, Frequency, Duration) Notes Start Date End Date Status PreserVision AREDS 2 - Oral for 28 Days Active Ferrous Gluconate 324 (38 Fe) MG Oral for 28 Days Active DULoxetine HCl 60 MG Oral for 28 Days Active Gabapentin 600 MG Oral for 28 Days Active Furosemide 20 MG Oral for 28 Days Active Vitamin D3 50 MCG (1999 UT) 1 capsule Orally Once a day for 30 day(s) Active HumaLOG Active Lantus SoloStar 08/05/2023 Act radha Docusate Sodium 100 MG Oral for 28 Days Active Atorvastatin Calcium 80 MG Oral for 28 Days Active Omeprazole 20 MG Oral for 28 Days Active Extra Depth Orthopedic Shoes (1 Pair) with Customized Heat Molded Multidensity Innersoles (3 Pair) as directed Dx: NIDDM/Polyneuropathy (E11.42), Hammertoe Foot Deformity (M20.41,M20.42), Preulcerative Skin Lesion(s) (L85.1 05/18/2024 Active Lisinopril 10 MG Oral for 28 Days Active Immunizations Vaccine Route Administration Date Status Comme nts Influenza Unknown 08/08/2023 Administered Social History Tobacco Use: Social History Observation Description Date Details (start date - stop date) Never Smoker NA - NA Tobacco Use/Smoking Question Answer Notes Are you a: nonsmoker Additional Findings: Tobacco Non-User Current no n-smoker Alcohol Screen Question Answer Notes Did you have a drink containing alcohol in the p ast year? No Points 0 Interpretation Negative Tobacco use other than smoking: Question Answer Notes Are you an other tobacco user? No Problems Problem Type SNOMED Code ICD Code Onset Dates Problem Status W/U Status Risk Notes Problem Acquired hammer toe of right foot (157527617702 9105) Other hammer toe(s) (acquired), right foot (M20.41) Active confirmed Problem Acquired hammer toe of left foot (289128960520 9103) Other hammer toe(s) (acquired), left foot (M20.42) Active confirmed Problem 29671976 Type 2 diabetes mellitus with polyneuropathy (E11.42) Active confirmed Vital Signs Blood pressure diastolic 51 mm Hg 05/18/2024 Height 5ft in 05/18/2024 Blood pressure systolic 128 mm Hg 05/18/2024 Weight 315 lbs 05/18/2024 BMI 61.51 kg/m2 05/18/2024 Encounters Encounter Location Date Provider Diagnosis [address] [address] 05/18/2024 Krysta Haile Other hammer toe(s) (acquired), right foot M20.41 ; Other hammer toe(s) (acquired), left foot M20.42 ; Type 2 diabetes mellitus with polyneuropathy E11.42 and Tinea unguium B35.[address] [facility] [address] 03/12/2024 [facility]ile [facility] [address] 04/20/2024 Krysta Haile [address] [address] 08/22/2024 Krysta Haile [address] [address] 09/24/2024 Krysta [facility] [place] [address] [place] [address] 10/16/2024 Krysta [facility] [place] [address] [place] [address] 01/14/2025 Pravin [facility] [place] [address] [place] [address] 01/22/2025 Pravin Holbrook Assessments Encounter Date Diagnosis (ICD Code) Assessment Notes Treatment Notes Treatment Clinical Notes Section Notes 05/18/2024 Other hammer toe(s) (acquired), right foot (ICD-10 - M20.41) Patient Educated with: DIABETIC FOOT CARE INSTRUCTIONS. pdf (DIABETIC FOOT CARE INSTRUCTIONS. pdf) 05/18/2024 Other hammer toe(s) (acquired), left foot (ICD-10 - M20.42) 05/18/2024 Type 2 diabetes mellitus with polyneuropathy (ICD-10 - E11.42) 05/18/2024 Tinea unguium (ICD-10 - B35.1) Plan Of Treatment No Information Insurance Providers Payer Name Payer Address Payer Phone Subscriber Number Group Number Insured Name Patient Relationship to Insured Coverage Start Date Coverage End Date [facility] [employer] Claims [address] [place] [id number] Catrina Teresa Self - patient is the insured Medical (General) History Medical History History ICD Code Cancer Cataracts Diabetic Gall bladder problems Hiatal hernia High blood pressure Macular degeneration Chicken pox Surgical History Surgery Date(Month/Year) Cervical cancer 2000 appendectomy 2001 Gall bladder removal 2011 Surgery on stomach Hospitalization History Reason Date(Month/Year) [facility] - Infection on stomach
--- OUTSIDE RECORDS SUMMARY | 2025-03-07 15:28 | XMS_ITS | Clinical Summary ---
Author Organization [address] [place] [address] [place] [phone] Phone Care Team Providers Care Senior Director Insight Name Role Phone Rafaela Galvan Primary Care Provider Surgical History Surgery Date Site/Laterality Comments OTHER SURGICAL HISTORY 1998 PROCEDURE: HISTORICAL TOTAL HYSTERECTOMY W/O BSO; COMMENT: endometial CA, Dr. 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 DX:Other pulmonary embolism and infarction; COMMENT: follow up CT angiogram neg on 07/28/05 Phlebitis and thrombophlebit is of superficial vessels of lower extremities DX:Phlebitis and thrombophle bitis of superficial vessels of lower extremities Rash and other nonspecific s kin eruption DX:Rash and other nonspecifi c skin eruption Mixed hyperlipidemia DX:Mixed hy perlipidemia Meralgia paresthetica DX:Meralgi a paresthetica Type II or unspecified type diabetes mellitus without mention of complication, not stated as uncontrolled DX:Type II or unspecified ty pe diabetes mellitus without mention of complication, not stated as uncontrolled Heart disease, unspecified 09/19/2006 DX:He art disease, unspecified Unspecified essential hypertension DX:Unspecified essential hypertension CKD (chronic kidney disease) stage 3, GFR 30-59 ml/min (CMS/HCC V24, CMS/HCC V28) 10/30/2012 DX:CKD (chronic kidney disea se) stage 3, GFR 30-59 ml/min ([facility]) DM (diabetes mellitus), type 2, uncontrolled, with renal complications 11/10/2005 DX:DM (diabetes mellitus), type 2, uncontrolled, with renal complications Adrenal adenoma 07/04/2019 DX:Adrenal adeno ma DVT (deep venous thrombosis) ([facility] V24, [facility] V28) DX:DVT (deep venous thrombos is) ([facility]) Cervical cancer ([facility] V24 , [facility] V28) DX:Cervical cancer ([facility]) Neuropathy DX:Neuropathy Cellulitis DX:Cellulitis Carpal tunnel syndrome, unsp ecified laterality DX:Carpal tunnel syndrome, unspecified laterality Body mass index 60.0-69.9, a dult ([facility] V24, [facility] V28) DX:Body mass index 60.0-69. 9, adult ([facility]) Recurrent major depressive d isorder, remission status unspecified ([facility] V24) DX:Recurrent major depressiv e disorder, remission status unspecified ([facility]) Hyperparathyroidism ([facility] V24) DX:Hyperparathyroidism ([facility]) Family History Medical History Relation Name Comments Other: CABG Father Other: stomach cancer Father Lung cancer Mother Blindness Neg Hx Cataracts Neg Hx Glaucoma Neg Hx Macular degeneration Neg Hx Strabismus Neg Hx Relation Name Status Comments Father Mother Social History Tobacco Use Types Packs/Day Years Used Date Smoking Tobacco: Never Smokeless Tobacco: Never Alcohol Use Standard Drinks/Week Comments Not Currently 0 (1 standard drink = 0.6 oz pur e alcohol) Comments Unknown Sex and Gender Information Value Date Recorded Sex Assigned at Not on file Legal Sex Female 5:05 AM EST Gender Identity Not on file Sexual Orientation Not on file Obstetrics History Last Filed Vital Signs Vital Sign Reading Time Taken Comments Blood Pressure 128/70 08/23/2024 3:56 PM EDT Sit ting L Arm Pulse 82 08/23/2024 3:56 PM EDT Temperature - - Respiratory Rate - - Oxygen Saturation - - Inhaled Oxygen Concentration - - Weight 145 kg (320 lb) 08/23/2024 3:56 PM EDT Height 152.4 cm (5') 08/23/2024 3:56 PM EDT Body Mass Index 62.5 08/23/2024 3:56 PM EDT Plan of Treatment Upcoming Encounters Date Type Department Care Team (Late st Contact Info) Description 03/14/2025 1:30 PM EDT Ancillary Procedure [facility] [address] [place] [address] Health Maintenance Due Date Last Done Comments Breast Cancer Screening 1950 COVID-19 Vaccine (#1) 1957 Zoster Vaccines (1 of 2) 2002 Pneumococcal Vaccine: 50+ Years (2 of 2 - PCV) 12/19/2007 12/19/2006 RSV Immunization Adult Patients (1 - Risk 60-74 years 1-dose series) 2012 DTaP,Tdap,and Td Vaccines (2 - Td or Tdap) 07/25/2017 07/25/2007 Cholesterol Screening (Lipid Panel) 10/16/2022 Colorectal Cancer Screening: Stool Based Tests (FOBT/FIT) 10/16/2022 Depression Screening 10/16/2022 Falls Risk Assessment 10/16/2022 Hepatitis C Screening 10/16/2022 Hypertension/CHF/CAD Annual BMP Blood Test 10/16/2022 Medicare Annual Wellness Visit 10/16/2022 Osteoporosis Screening (Bone Density Screening) 10/16/2022 Social Influencers of Health Screening 10/16/2022 Influenza Vaccine (Season Ended) 2025 08/01/2015, 09/05/2014, 08/09/2013, Additional history exists HIB Vaccines Aged Out No longer eligi ble based on patient's age to complete this topic HPV Vaccines Aged Out No longer eligi ble based on patient's age to complete this topic Hepatitis A Vaccines Aged Out No long er eligible based on patient's age to complete this topic Hepatitis B Vaccines Aged Out No long er eligible based on patient's age to complete this topic IPV Vaccines Aged Out No longer eligi ble based on patient's age to complete this topic MMR Vaccines Aged Out No longer eligi ble based on patient's age to complete this topic Meningococcal ACWY Vaccine Aged Out N o longer eligible based on patient's age to complete this topic Meningococcal B Vaccine Aged Out No l onger eligible based on patient's age to complete this topic RSV Immunization Patients Under 20 months Aged Out No longer eligible based on patient's age to complete this topic Varicella Vaccines Aged Out No longer eligible based on patient's age to complete this topic Insurance [employer] MEDIC[employer] Member Subscriber Plan / Payer (Ef fective 2020-Present) Name:Catrina Teresa Relation to Subscriber:Self Name:Catrina Teresa Payer ID:[id number] Group ID:[id number] Type:Not on file Address: [place] [address] [place] [address] Care Teams Senior Director Insight Relationship Specialty Start Date End Date Rafaela Galvan [address] [place] [address] [place] [phone] PCP - General 06/01/23
== END 2025-03-07 14:27 | disposition home or self-care (01) ==
LOC: HO.HKAS 13:00
PROVIDERS: PCP Internal Medicine; Visit Provider Internal Medicine Nephrology
DX: E11.22 Type 2 diabetes mellitus with diabetic chronic kidney disease (principal); N18.30 Chronic kidney disease, stage 3 unspecified; I10 Essential (primary) hypertension
CPT/HCPCS: 99204

== ENCOUNTER → 2025-03-07 12:59 | Outpatient (BNVA) | payer OTHER, SELFPAY | PROVIDERS: PCP Internal Medicine; Visit Provider Internal Medicine Nephrology | DX: E11.22 Type 2 diabetes mellitus with diabetic chronic kidney disease (principal); I12.9 Hypertensive chronic kidney disease with stage 1 through stage 4 chronic kidney disease, or unspecified chronic kidney disease; N18.30 Chronic kidney disease, stage 3 unspecified | CPT/HCPCS: 99202 ==

== ENCOUNTER 2025-06-25 11:42 | Outpatient (AMB) | payer OTHER, SELFPAY ==
--- OUTSIDE RECORDS SUMMARY | 2025-01-15 09:00 | XMS_ITS ---
Author Organization [facility] Address [address] [place] [address] Care Team Providers Care Educational Advisor Name Role Phone Dr Julieta Griffin Primary Care Provider Christine vailable Pravin Holbrook Unavailable [phone] Encounters Encounter Location Date Provider Diagnosis [facility] [address] [place] [address] 01/15/2025 Pravin Holbrook Plan Of Treatment No Information Progress Notes * Catrina TERESA ADOB: 2 (75 yo F)Acc No.[id number]:01/15/2025 Progress Note Patient: Catrina BONILLA Provider: Quincy Holbrook DPM :1950 A ge:74 Y S ex:Female Date:01/15/2025 Address:[address] [place] [address] [address] [place] [id number] Pcp:Dr Julieta Griffin Subjective: * Chief Complaints: * * Medical History: Objective: * Vitals: Assessment: Plan: * Treatment: * Images: * The named appointment provid er may or may not be the originator of this progress note, and it is not deemed complete until electronically signed by the appointment provider. Sign off status: Pending * Provider: Quincy Holbrook DPM Date: 0 01/15/2025 Generated for Printi ng/Ministerio/eTransmitting on: 0 06/25/2025 01:14 PM EDT
--- NOTE | 2025-06-25 12:19 | HO.NEPHOV ---
Vital Signs 06/25/25 12:25 Height 5 ft Weight 334 lb 8 oz BMI 65.3 BP 132/64 Blood Pressure Location Rt brachial Position Sitting Pulse 71 Pulse Source Pulse Oximeter Pulse Oximetry (%) 95 Oxygen Delivery Method Room Air Intake Visit Reasons: 3 mo follow up-Conf Content Coordinator Required: No Accompanied by: Self / Same As Patient Allergies alosetron (Lotronex) Allergy (Unknown, Verified 06/25/25 12:25) itching clindamycin (CLINDAMYCIN) Allergy (Unknown, Verified 06/25/25 12:25) RASH Clindamycin HCl Allergy (Unknown, Uncoded 07/02/21 11:38) rash HPI Comments Details: I had the pleasure of seeing Catrina in follow up for chronic kidney disease. She is 75 years of age with diabetes and hypertension for a long time. She has high BMI. She has severe obstructive sleep apnea as well. Her hemoglobin A1c had been uncontrolled. It was close to 10 last year but has improved since. She claims to be compliant with her medications. She is on JONNATHAN-inhibitor. She is not taking any SGLT2 inhibitor. She has history of cervical cancer and had undergone radiotherapy in 2001. She denies diabetic retinopathy but has neuropathy. She denies epistaxis, photosensitivity, new skin rashes, hematemesis, melena, hematuria, flank pain, renal stones, new bone or back pain, excessive amount of nonsteroidal anti-inflammatory intake, orthostatic symptoms, coronary artery disease, congestive heart failure, CVA, carotid stenosis or peripheral arterial disease. She did not have any new specific systemic complaints at the time of this office visit. [facility] Medical History (Updated 06/25/25 @ 12:32 by Ketan Simpson MD) Macular degeneration History of pulmonary embolus (PE) Depression Hypertension Hyperlipidemia Hyperparathyroidism Hyperglycemia Chronic kidney disease, stage 3 Pulmonary embolus Peroneal DVT (deep venous thrombosis) Diabetes type 2, controlled Surgical History Hx of endoscopy Hx of colonoscopy Hx of appendectomy Hx of carpal tunnel repair History of hysterectomy S/P skin biopsy Family History Father No problems noted. Mother No problems noted. Brother No problems noted. Social History Are you a primary customer care representative to a significant other at home: No Alcohol intake: former Patient Tobacco Use Status: Never used Tobacco Advance Directives Date on File: 08/12/20 Review of Systems Const All systems reviewed & are unremarkable except as noted in HPI and below Physical Exam Vital Signs: Last Vital Signs Pulse 71 06/25/25 12:25 BP 132/64 06/25/25 12:25 Pulse Ox 95 06/25/25 12:25 Oxygen Delivery Method Room Air 06/25/25 12:25 BMI result Body Mass Index 65.3 Const General: comfortable and no acute distress Orientation/consciousness: patient oriented x3 HEENT Head: Yes normocephalic Mouth: Normal oral and palatal mucosa present Eyes EOM: EOMs intact bilaterally Neck Neck: Yes supple Resp Auscultation: clear to auscultation bilaterally Cardio Jugular venous distension: no JVD Rate: regular rate GI Palpation (GI): Soft to palpation Auscultation: normal bowel sounds General: Yes no CVA tenderness Back/Spine/Pelvis Back: no CVA tenderness Skin General skin exam: no rashes or lesions noted Neuro General: patient oriented x3 and moves all extremities Extrem General: Yes no pedal edema Assessment & Plan Assessment & Plan (1) Hypertension: Code(s): I10 - Essential (primary) hypertension Category: Medical Qualifiers: Hypertension type: primary hypertension Qualified Code(s): I10 - Essential (primary) hypertension (2) CKD stage 3 due to type 2 diabetes mellitus: Code(s): E11.22 - Type 2 diabetes mellitus with diabetic chronic kidney disease; N18.30 - Chronic kidney disease, stage 3 unspecified Category: Medical (3) Proteinuria: Code(s): R80.9 - Proteinuria, unspecified Category: Medical Qualifiers: Proteinuria type: other Qualified Code(s): R80.8 - Other proteinuria Plan 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 Her renal functions are pretty stable. She does not have any significant proteinuria. Her blood pressure is at goal. Her hemoglobin A1c is improving. She needs to lose weight. She should avoid nonsteroidal anti-inflammatories and maintain good hydration. She is tolerating JONNATHAN inhibitor well. I intend to maximize the dose of JONNATHAN inhibitor provided her has renal functions, hemodynamics and serum potassium permits. She should go on SGLT2 inhibitor. I ordered follow-up blood work. I did not make any medication changes today. Answered all questions. Follow-up appointment given Orders: Orders Protein Creatinine Ratio, Ur 3 Months E11.22 - Type 2 diabetes mellitus with diabetic chronic kidney disease, I10 - Essential (primary) hypertension, N18.30 - Chronic kidney disease, stage 3 unspecified, R80.8 - Other proteinuria Creatinine 3 Months E11.22 - Type 2 diabetes mellitus with diabetic chronic kidney disease, I10 - Essential (primary) hypertension, N18.30 - Chronic kidney disease, stage 3 unspecified, R80.8 - Other proteinuria Blood Urea Nitrogen 3 Months E11.22 - Type 2 diabetes mellitus with diabetic chronic kidney disease, I10 - Essential (primary) hypertension, N18.30 - Chronic kidney disease, stage 3 unspecified, R80.8 - Other proteinuria Electrolytes 3 Months E11.22 - Type 2 diabetes mellitus with diabetic chronic kidney disease, I10 - Essential (primary) hypertension, N18.30 - Chronic kidney disease, stage 3 unspecified, R80.8 - Other proteinuria Coding Level of Care Code Est Pt Level 4 (17199) Diagnoses Primary hypertension I10 Hypertension type: primary hypertension CKD stage 3 due to type 2 diabetes mellitus E11.; N18.30 Other proteinuria R80.8 Proteinuria type: other
[2025-06-25 12:25] VITALS: BP 132/64; PULSE 71; O2SAT 95; BMI 65.3
--- OUTSIDE RECORDS SUMMARY | 2025-06-25 13:14 | XMS_ITS | Clinical Summary ---
Author Organization [facility] Address [address] [place] [address] Phone Care Team Providers Care Outside Cutter Name Role Phone Rafaela Galvan Primary Care Provider + [phone] Encounters Date Type Department Care Team Description 04/18/2025 Telephone [facility] [address] [place] [phone] Rafaela Galvan Medical Records 04/02/2025 1:30 PM EDT Ancillary Procedure [facility] [address] [facility] [address] [place] [address] Palpitations; GRAYSON (dyspnea on exertion) from Last 3 Months Surgical History Surgery Date Site/Laterality Comments OTHER SURGICAL HISTORY 1998 PROCEDURE: HISTORICAL TOTAL HYSTERECTOMY W/O BSO; COMMENT: endometial CA, Dr. Leon, ovaries retained TONSILLECTOMY PROCEDURE: HISTORICAL TONSILLECTOMY APPENDECTOMY 05/2003 PROCEDURE: ME APPENDECTOMY CARPAL TUNNEL RELEASE PROCEDURE: ME NEUROPLASTY &/TRANSPOS MEDIAN NRV CARPAL TUNNE Medical [...] kidney disease) stage 3, GFR 30-59 ml/min ([facility] V24, [facility] V28) 10/30/2012 DX:CKD (chronic kidney disea se) stage 3, GFR 30-59 ml/min ([facility]) DM (diabetes mellitus), type 2, uncontrolled, with renal complications 11/10/2005 DX:DM (diabetes mellitus), type 2, uncontrolled, with renal complications Adrenal adenoma 07/04/2019 DX:Adrenal adeno ma DVT (deep venous thrombosis) ([facility] V24, [facility] V28) DX:DVT (deep venous thrombos is) ([facility]) Cervical cancer ([facility] V24 , [facility] V28) DX:Cervical cancer ([facility]) Neuropathy DX:Neuropathy Cellulitis DX:Cellulitis Carpal tunnel syndrome, unsp ecified laterality DX:Carpal tunnel syndrome, unspecified laterality Body mass index 60.0-69.9, a dult ([facility] V24, [facility] V28) DX:Body mass index 60.0-69. 9, adult ([facility]) Recurrent major depressive d isorder, remission status unspecified ([facility] V24) DX:Recurrent major depressiv e disorder, remission status unspecified ([facility]) Hyperparathyroidism ([facility] V24) DX:Hyperparathyroidism ([facility]) Family History Medical History Relation Name Comments [...] 08/23/2024 3:56 PM EDT Plan of Treatment Health Maintenance Due Date Last Done Comments Breast Cancer Screening 1950 Diabetes: Annual GFR (Glomerular Filtration Rate) 1952 Diabetes: Annual Foot Exam 1962 Diabetes: Annual Retina Eye Exam 1962 Zoster Vaccines (1 of 2) 1971 RSV Immunization Adult Patients (1 - Risk 60-74 years 1-dose series) 2012 Cholesterol Screening (Lipid Panel) 10/16/2022 Colorectal Cancer Screening: Stool Based Tests (FOBT/FIT) 10/16/2022 Falls Risk Assessment 10/16/2022 Hepatitis C Screening 10/16/2022 Hypertension/CHF/CAD Annual BMP Blood Test 10/16/2022 Medicare Annual Wellness Visit 10/16/2022 Osteoporosis Screening (Bone Density Screening) 10/16/2022 Social Influencers of Health Screening 10/16/2022 COVID-19 Vaccine ( season) 2024 10/19/2022, 09/15/2021, 02/12/2021, Additional history exists Depression Screening 11/07/2024 Diabetes: Annual Urine Albumin-Creatinine Ratio (uACR) 04/02/2025 Diabetes: Blood Sugar Control Test (HGBA1C) 04/02/2025 Influenza Vaccine (#1) 2025 , 10/19/2022, 09/15/2021, Additional history exists DTaP,Tdap,and Td Vaccines (3 - Td or Tdap) 10/11/2032 10/11/2022, 07/25/2007 Pneumococcal Vaccine: 50+ Years Completed 10/11/2022, 04/12/2018, 12/19/2006 HIB Vaccines Aged Out No longer eligi [...] on patient's age to complete this topic Procedures Procedure Name Priority Date/Time Associated Diagnosis Comments CARDIAC HOLTER MONITOR (REPORT GENERATED IN HOUSE) Routine 04/02/2025 1:40 PM EDT Palpitations GRAYSON (dyspnea on exertion) from Last 3 Months Results * CARDIAC HOLTER MONITOR (REPORT GENERATED IN HOUSE) (04/02/2025 1:40 PM EDT) Anatomical Region Laterality Modality Cardiac Diagnost ic Narrative 04/08/2025 4:49 PM EDT [facility] DIAGNOSTIC TESTING DEPARTMENT [address] [place] [address] TEL: FAX: Type of Test: 48 Hour Holter Monitor Date of Test: 04/02/2205 Ordering Provider: Julieta Griffin MD Reason for Test: Palpitations; GRAYSON (dyspnea on exertion) Impression: 1: Normal Sinus Rhythm with First Degree AV Block and periods of Sinus Bradycardia. 2: Heart rate range was 45-143 bpm with an average of 66 bpm. Total time in Sinus Bradycardia: 24 hrs 40 mins. 3: Rare PACs and two atrial pairs. Rare PVCs. 4: No significant pauses noted, longest R-R was 1.6 seconds at 4:08 AM. 5: Diary returned with no symptoms noted. Julieta Griffin MD [facility] C[facility] PROC EDURES Final Result from Last 3 Months Insurance [employer] MED[employer] Member Subscriber Plan / Payer (Ef fective 2020-Present) Name:Catrina Teresa Relation to Subscriber:Self Name:Catrina Teresa Payer ID:[id number] Group ID:[id number] Type:Not on file Address: [place] [address] [place] [address] Care Teams Outside Cutter Relationship Specialty Start Date End Date Rafaela Galvan [address] [place] [address] [place] [address] PCP - General 06/01/23
--- OUTSIDE RECORDS SUMMARY | 2025-06-25 13:14 | XMS_ITS | Clinical Summary ---
Author Organization [facility] Address [address] [place] [phone] Phone Care Team Providers Care Painter [employer]ader Cork Name Role Phone Julieta Griffin MD Primary Care Pro vider Allergies Active Allergy Reactions Criticality Noted Date Comments Clindamycin Nausea and/or Vomiting,Rash,Unknown High 11/10/2005 Enoxaparin Itching,Nausea and/o r Vomiting,Rash,Unknown Medium 04/21/2020 Medications alendronate (FOSAMAX) 70 MG tablet 10/27/2023 Active aspirin 81 mg chewable tablet 10/27/2023 Act radha atorvastatin (LIPITOR) 80 MG tablet Take 80 mg by mouth. 08/15/2023 Active docusate sodium (COLACE) 100 MG capsule 200 mg. 04/20/2023 Active DULoxetine (CYMBALTA) 60 MG capsule Oral for 28 Days Active ferrous gluconate 324 mg (38 mg elemental) tablet 324 mg. 04/20/2023 A ctive furosemide (LASIX) 20 MG tablet Oral for 28 Days Active omeprazole (PRILOSEC) 20 MG capsule Oral for 28 Days Active gabapentin (NEURONTIN) 600 MG tablet 600 mg. 3 times daily Active SENNA 8.6 mg tablet 10/27/2023 Active PRESERVISION AREDS-2 capsule 10/27/2023 Act radha insulin glargine,hum.rec. anlog (LANTUS SUBQ) 50 Units. 08/05/2023 Active OZEMPIC 1 mg/dose (4 mg/3 mL) subcutaneous injection pen 10/27/2023 Activ e lisinopril (PRINIVIL,ZESTRIL ) 20 MG tablet Take 20 mg by mouth. 08/15/2023 Active ONETOUCH DELICA PLUS LANCET 30 gauge Misc USE TO TEST FOUR TIMES DAILY 10/10/2023 Active insulin lispro (HUMALOG U-100 INSULIN) 100 unit/mL Crtg Inject under the skin. Active ONETOUCH VERIO Strp strips USE TO TEST FOUR TIMES DAILY 10/09/2023 Active Social History Tobacco Use Types Packs/Day Years Used Date Smoking Tobacco: Never Assessed Education Answer Date Recorded Are you interested in more education? Not on ralf e 08/10/2023 Are you concerned about learning? Not on file 08/10/2023 No 08/10/2023 No 08/10/2023 Digital Access Answer Date Recorded No 08/10/2023 No 08/10/2023 Reliable internet access at home? Not on file 08/10/2023 Device with a working camera? Not on file Comments Unknown Sex and Gender Information Value Date Recorded Sex Assigned at Not on file Legal Sex Female 10:03 AM EDT Gender Identity Not on file Sexual Orientation Not on file Plan of Treatment Health Maintenance Due Date Last Done Comments CREATININE LEVEL 1952 LIPID PANEL 1952 POTASSIUM LEVEL 1952 DEPRESSION SCREENING 1964 SMOKING Hx and SMOKELESS TOBACCO SCREENING 1965 HEPATITIS C SCREENING 1970 MAMMOGRAM 1992 COLOGUARD 1997 COLONOSCOPY 1997 COLORECTAL CANCER SCREENING 1997 FIT TEST 1997 FOBT 1997 SIGMOIDOSCOPY 1997 VIRTUAL COLONOSCOPY 1997 ZOSTER VACCINES (1 of 2) 2002 OSTEOPOROSIS SCREENING INITIAL (ONE-TIME) 2017 COVID-19 VACCINE ( season) 2024 10/19/2022, 09/15/2021, 02/12/2021, Additional history exists RSV VACCINE (1 - 1-dose 75+ series) 2027 Adult Td,Tdap Booster 10/11/2032 10/11/2022, 007 PNEUMOCOCCAL VACCINES (50+ years) Completed 10/11/2022, 12/19/2006 HEPATITIS A VACCINES Aged Out No long er eligible based on patient's age to complete this topic HIB VACCINES Aged Out No longer eligi ble based on patient's age to complete this topic MENINGOCOCCAL VACCINES (ACWY) Aged Out No longer eligible based on patient's age to complete this topic MENINGOCOCCAL VACCINES (B) Aged Out N o longer eligible based on patient's age to complete this topic Medical Devices Not on file Insurance MEDICARE REPLACEMENT MEDICARE REPLACEMENT MEDICARE REPLACEMENT MEDICARE REPLACEMENT MEDICARE REPLACEMENT Care Teams Pain[employer]ader [employer] Relationship Specialty Start Date End Date Julieta Griffin MD [address] [place] [phone] PCP - General 09/05/23 Additional Source Comments The information contained in this document represents components of the legal health record. It is not the complete legal health record.[facility]
== END 2025-06-25 12:35 | disposition home or self-care (01) ==
LOC: HO.HKAS 11:43
PROVIDERS: PCP Internal Medicine; Visit Provider Internal Medicine Nephrology
DX: I10 Essential (primary) hypertension (principal); E11.22 Type 2 diabetes mellitus with diabetic chronic kidney disease; N18.30 Chronic kidney disease, stage 3 unspecified; R80.8 Other proteinuria
CPT/HCPCS: 99214

== ENCOUNTER → 2025-06-25 11:42 | Outpatient (BNVA) | payer OTHER, SELFPAY | PROVIDERS: PCP Internal Medicine; Visit Provider Internal Medicine Nephrology | DX: E11.22 Type 2 diabetes mellitus with diabetic chronic kidney disease (principal); N18.30 Chronic kidney disease, stage 3 unspecified; R80.8 Other proteinuria | CPT/HCPCS: 99212 ==